=== PATIENT | female | born 1940 | race Caucasian/White ===

== ENCOUNTER 2016-08-10 12:24 | Inpatient (IN) | payer OTHER ==
[2016-08-10] VITALS (11 sets, daily range): BP systolic 73–116; BP diastolic 32–81
[~2016-08-10] VITALS: Ht 162.6 cm; Wt 88.9 kg
[~2016-08-10 12:24] MED LIST: ASPIRIN325 MG PO; ATORVASTATIN CA40 MG PO; CARVEDILOL12.5 MG PO; CARVEDILOL6.25 MG PO; GABAPENTIN100 MG PO; GLIPIZIDE ER2.5 MG PO; HYDREA500 MG PO; HYDROXYUREA500 MG PO; LASIX20 MG PO; LISINOPRIL40 MG PO; NORVASC2.5 MG PO; SYSTANE GEL EYE10 ML BOTH EYES
[2016-08-10 13:21] LABS: INTER. NORMALIZED RATIO 1.6; PROTHROMBIN TIME 16.1 (9.2-11.2); PTT 32.1 (25-32)
[2016-08-10 13:24] LABS: CHLORIDE 101 mEq/L (99-109); POTASSIUM 4.2 mEq/L (3.7-5.4); SODIUM 136 mEq/L (136-147)
[2016-08-10 13:25] LABS: AMYLASE 28 IU/L (1-118)
[2016-08-10 13:26] LABS: GLUCOSE 233 mg/dL (70-99)
[2016-08-10 13:27] LABS: ANION GAP 15 MEQ/L (2-14)
[2016-08-10 13:28] LABS: TOTAL BILIRUBIN 2.8 mg/dL (0.0-1.0)
[2016-08-10 13:29] LABS: SERUM ETHYL ALCOHOL < 10 mg/dL
[2016-08-10 13:30] LABS: ALKALINE PHOSPHATASE 83 IU/L (3-129); GFR ESTIMATE (CALCULATED) 15 mL/min/
[2016-08-10 13:31] LABS: UREA NITROGEN (BUN) 64 mg/dL (9-23)
[2016-08-10 13:33] LABS: LIPASE 21 U/L (1.0-51.0); TROP-I INTERPRETATION POSITIVE
[2016-08-10 13:34] LABS: TROP-I INTERPRETATION POSITIVE
[2016-08-10 13:38] LABS: TROPONIN-I 1.22 ng/mL (0.0-0.30)
[2016-08-10 14:18] LABS: EOSINOPHIL (%) 1.5 % (0-5); EOSINOPHIL COUNT 0.2 K/uL (0-0.3); IMMATURE GRANULOCYTE (%) 0.4 % (0.0-0.7); IMMATURE GRANULOCYTE COUNT 0.6 K/uL; LYMPHOCYTE COUNT 1.2 K/uL (1.0-2.8); MCH 20.1 PG (29.0-34.0); MCHC 28.5 G/DL (30.0-36.0); MCV 70.5 FL (83-99); MEAN PLAT.VOLUME 11.3 uM^3 (9.5-12.4); MONOCYTE (%) 4.1 % (3-12); MONOCYTE COUNT 0.6 K/uL (0-0.8); NEUTROPHIL (%) 85.2 % (45-76); NEUTROPHIL COUNT 12.2 K/uL (1.8-6.4); PLATELET COUNT 636 K/uL (156-360); RBC DIS.WIDTH-CV 24.4 % (11.8-14.6); RBC DIS.WIDTH-SD 55.7 % (39-53); RED BLOOD COUNT 4.68 M/uL (3.80-5.20); WHITE BLOOD COUNT 14.4 K/uL (4.1-10.2)
[2016-08-10 14:51] LABS: HEMATOLOGY COMMENT 1 SMEAR COMPATIBLE; PLAT.SUFFICIENCY INCREASED
[2016-08-10] MEDS ORDERED: GLIPIZIDE XL5 MG PO (15:54)
[2016-08-10] MEDS ORDERED: LISINOPRIL40 MG PO (15:56)
[2016-08-10] MEDS ORDERED: ELIQUIS5 MG PO (16:00)
[2016-08-10] MEDS ORDERED: OMEPRAZOLE40 M1 PO (16:00)
[2016-08-10] MEDS ORDERED: LASIX20 MG PO (16:00)
[2016-08-10 16:32] LABS: METH RESISTANT S AUREUS PCR NEGATIVE (NEGATIVE)
[2016-08-10 16:41] LABS: PROBE CHECK PASS; SPECIMEN PROCESSING CONTROL PASS
[2016-08-10 20:40] LABS: IRON 13 MCG/DL (35-150)
[2016-08-10 20:50] LABS: HEMATOCRIT 29.8 % (36.0-46.0); MCHC 28.2 G/DL (30.0-36.0); MCV 71.1 FL (83-99); PLATELET COUNT 556 K/uL (156-360); RBC DIS.WIDTH-CV 23.5 % (11.8-14.6); RBC DIS.WIDTH-SD 56.4 % (39-53); RED BLOOD COUNT 4.19 M/uL (3.80-5.20); WHITE BLOOD COUNT 12.5 K/uL (4.1-10.2)
[2016-08-10 20:57] LABS: URIC ACID 11.2 mg/dL (3.1-9.2)
[2016-08-10 21:41] LABS: FERRITIN 11 NG/ML (10-291)
[2016-08-11] VITALS (15 sets, daily range): BP systolic 81–114; BP diastolic 37–61
[2016-08-11 01:07] LABS: ADD MIUA? YES; BILIRUBIN SMALL; BLOOD NEGATIVE; COLOR DK YELLOW ((YELLOW)); GLUCOSE (STRIP) NEGATIVE; KETONES NEGATIVE; LEUKOCYTES MODERATE; NITRITE NEGATIVE; PROTEIN (STRIP) 30; SPECIFIC GRAVITY 1.035 (1.000-1.030)
[2016-08-11 01:13] LABS: TROP-I INTERPRETATION POSITIVE
[2016-08-11 01:25] LABS: TROPONIN-I 2.72 ng/mL (0.0-0.30)
[2016-08-11 02:09] LABS: EPITHELIAL CELLS RARE; MUCUS NONE SEEN; RED BLOOD CELLS 0-5 /HPF (0-5); WHITE BLOOD CELLS TNTC /HPF (0-5)
[2016-08-11 02:10] LABS: BACTERIA 2+; CASTS NONE SEEN /LPF; CRYSTALS NONE SEEN
[2016-08-11 05:06] LABS: CHLORIDE 102 mEq/L (99-109); POTASSIUM 4.4 mEq/L (3.7-5.4); SODIUM 136 mEq/L (136-147)
[2016-08-11 05:07] LABS: GLUCOSE 176 mg/dL (70-99)
[2016-08-11 05:09] LABS: ANION GAP 12 MEQ/L (2-14)
[2016-08-11 05:11] LABS: GFR ESTIMATE (CALCULATED) 14 mL/min/
[2016-08-11 05:12] LABS: UREA NITROGEN (BUN) 67 mg/dL (9-23)
[2016-08-11 07:02] LABS: TROP-I INTERPRETATION POSITIVE
[2016-08-11 07:05] LABS: TROPONIN-I 2.51 ng/mL (0.0-0.30)
[2016-08-11 08:00] LABS: POINT-OF-CARE METER ID UU14162636
[2016-08-11 08:40] LABS: AMPHETAMINE NEGATIVE (500 ng/mL); BARBITURATES NEGATIVE (200 ng/mL); BENZODIAZEPINES NEGATIVE (150 ng/mL); COCAINE NEGATIVE (150 ng/mL); INTERNAL CONTROLS VALID? YES; METHADONE NEGATIVE (200 ng/mL); METHAMPHETAMINE NEGATIVE (500 ng/mL); OPIATES (MORPHINE) NEGATIVE (100 ng/mL); OXYCODONE NEGATIVE (100 ng/mL); PHENCYCLIDINE NEGATIVE (25 ng/mL); PROPOXYPHENE NEGATIVE (300 ng/mL); THC CANNABINOIDS NEGATIVE (50 ng/mL); TRICYCLIC ANTIDEPRESSANTS NEGATIVE (300 ng/mL)
[2016-08-11 12:20] LABS: POINT-OF-CARE METER ID UU14162636
[2016-08-11 17:41] LABS: POINT-OF-CARE METER ID UU14162636
[2016-08-12] VITALS (12 sets, daily range): BP systolic 99–118; BP diastolic 24–60
[2016-08-12 05:58] LABS: POINT-OF-CARE METER ID UU14174217
[2016-08-12 06:27] LABS: NRBC (%) 0.5 /100 WBC (0-0)
[2016-08-12 06:55] LABS: ANION GAP 13 MEQ/L (2-14); CHLORIDE 99 MEQ/L (99-109); GFR ESTIMATE (CALCULATED) 11 mL/min/; GLOBULINS 2.7 G/DL (2.3-3.5); GLUCOSE 156 mg/dL (70-99); MAGNESIUM 2.1 mg/dl (1.3-2.7); POTASSIUM 4.8 MEQ/L (3.7-5.4); SAMPLE HEMOLYSIS CHECK 0; SAMPLE ICTERIC CHECK 0; SAMPLE LIPEMIA CHECK 0; SODIUM 135 MEQ/L (136-147); UREA NITROGEN (BUN) 74 mg/dL (9-23); URIC ACID 11.6 mg/dL (3.1-9.2)
[2016-08-12 07:05] LABS: EOSINOPHIL (%) 2.4 % (0-5); EOSINOPHIL COUNT 0.3 K/uL (0-0.3); HEMATOCRIT 30.7 % (36.0-46.0); IMMATURE GRANULOCYTE (%) 0.3 % (0.0-0.7); LYMPHOCYTE COUNT 1.2 K/uL (1.0-2.8); MCH 19.8 PG (29.0-34.0); MCHC 27.7 G/DL (30.0-36.0); MCV 71.4 FL (83-99); MONOCYTE (%) 5.1 % (3-12); MONOCYTE COUNT 0.7 K/uL (0-0.8); NEUTROPHIL (%) 82.6 % (45-76); NEUTROPHIL COUNT 10.7 K/uL (1.8-6.4); RBC DIS.WIDTH-CV 23.6 % (11.8-14.6); RBC DIS.WIDTH-SD 56.6 % (39-53); WHITE BLOOD COUNT 12.9 K/uL (4.1-10.2)
[2016-08-12 07:15] LABS: MEAN PLAT.VOLUME 11.5 uM^3 (9.5-12.4); PLAT.SUFFICIENCY INCREASED; PLATELET COUNT 613 K/uL (156-360); USER ID SDF
[2016-08-12 11:58] LABS: POINT-OF-CARE METER ID UU14174217
[2016-08-12 13:28] LABS: UR CREATININE CONCENTRATION 230.6 MG/DL
[2016-08-12 17:36] LABS: POINT-OF-CARE METER ID UU14174217
[2016-08-12 21:45] LABS: POINT-OF-CARE METER ID UU13113698
[2016-08-13 03:12] LABS: CHLORIDE 101 mEq/L (99-109); POTASSIUM 4.7 mEq/L (3.7-5.4); SODIUM 132 mEq/L (136-147)
[2016-08-13 03:15] LABS: GLUCOSE 153 mg/dL (70-99)
[2016-08-13 03:16] LABS: ANION GAP 14 MEQ/L (2-14)
[2016-08-13 03:18] LABS: ALKALINE PHOSPHATASE 74 IU/L (3-129)
[2016-08-13 03:20] LABS: UREA NITROGEN (BUN) 82 mg/dL (9-23)
[2016-08-13 03:32] LABS: GFR ESTIMATE (CALCULATED) 9 mL/min/; TOTAL BILIRUBIN 1.5 mg/dL (0.0-1.0)
[2016-08-13 04:07] LABS: EOSINOPHIL COUNT 0.3 K/uL (0-0.3); HEMATOCRIT 29.7 % (36.0-46.0); IMMATURE GRANULOCYTE (%) 0.2 % (0.0-0.7); IMMATURE GRANULOCYTE COUNT 0.3 K/uL; LYMPHOCYTE COUNT 1.5 K/uL (1.0-2.8); MCH 19.8 PG (29.0-34.0); MCHC 28.3 G/DL (30.0-36.0); MEAN PLAT.VOLUME 11.6 uM^3 (9.5-12.4); MONOCYTE (%) 5.2 % (3-12); MONOCYTE COUNT 0.7 K/uL (0-0.8); NEUTROPHIL (%) 81.5 % (45-76); PLAT.SUFFICIENCY INCREASED; PLATELET COUNT 653 K/uL (156-360); RBC DIS.WIDTH-SD 54.8 % (39-53); RED BLOOD COUNT 4.24 M/uL (3.80-5.20); USER ID WCD; WHITE BLOOD COUNT 13.6 K/uL (4.1-10.2)
[2016-08-13 04:11] VITALS: BP 116/54
[2016-08-13 08:14] LABS: POINT-OF-CARE METER ID UU14174216; POINT-OF-CARE USER ID NUTSLF44
[2016-08-13 09:44] VITALS: BP 126/60
[2016-08-13 11:35] LABS: POINT-OF-CARE METER ID UU13113698; POINT-OF-CARE USER ID NUTSLF44
[2016-08-13 12:55] VITALS: BP 105/54
[2016-08-13 15:35] VITALS: BP 110/73
[2016-08-13 16:58] LABS: POINT-OF-CARE METER ID UU13113698; POINT-OF-CARE USER ID NUTSLF44
[2016-08-13 20:00] VITALS: BP 118/56
[2016-08-13 21:26] LABS: POINT-OF-CARE METER ID UU13113698
[2016-08-13 23:55] VITALS: BP 130/63
[2016-08-14 04:06] VITALS: BP 133/63
[2016-08-14 07:23] LABS: EOSINOPHIL (%) 2.2 % (0-5); EOSINOPHIL COUNT 0.3 K/uL (0-0.3); HEMATOCRIT 28.7 % (36.0-46.0); IMMATURE GRANULOCYTE (%) 0.2 % (0.0-0.7); LYMPHOCYTE COUNT 1.6 K/uL (1.0-2.8); MCH 20.1 PG (29.0-34.0); MCHC 28.6 G/DL (30.0-36.0); MCV 70.3 FL (83-99); MONOCYTE (%) 4.1 % (3-12); MONOCYTE COUNT 0.5 K/uL (0-0.8); NEUTROPHIL (%) 79.7 % (45-76); NEUTROPHIL COUNT 9.2 K/uL (1.8-6.4); RBC DIS.WIDTH-SD 54.9 % (39-53); RED BLOOD COUNT 4.08 M/uL (3.80-5.20); WHITE BLOOD COUNT 11.6 K/uL (4.1-10.2)
[2016-08-14 07:31] LABS: ANION GAP 9 MEQ/L (2-14); CHLORIDE 98 MEQ/L (99-109); GFR ESTIMATE (CALCULATED) 9 mL/min/; GLUCOSE 145 mg/dL (70-99); POTASSIUM 4.9 MEQ/L (3.7-5.4); SAMPLE HEMOLYSIS CHECK 0; SAMPLE ICTERIC CHECK 0; SAMPLE LIPEMIA CHECK 0; SODIUM 131 MEQ/L (136-147); UREA NITROGEN (BUN) 90 mg/dL (9-23)
[2016-08-14 07:58] LABS: POINT-OF-CARE METER ID UU13113698
[2016-08-14 08:04] LABS: MEAN PLAT.VOLUME 11.4 uM^3 (9.5-12.4); PLAT.SUFFICIENCY INCREASED; PLATELET COUNT 644 K/uL (156-360); USER ID SDF
[2016-08-14 08:30] VITALS: BP 117/57
[2016-08-14 11:34] LABS: POINT-OF-CARE METER ID UU13113698
[2016-08-14 11:57] VITALS: BP 106/55
[2016-08-14 16:25] VITALS: BP 135/57
[2016-08-14 16:26] LABS: POINT-OF-CARE METER ID UU13113698
[2016-08-14 19:08] VITALS: BP 117/56
[2016-08-14 21:00] LABS: POINT-OF-CARE METER ID UU14174216
[2016-08-14 23:42] VITALS: BP 119/58
[2016-08-15 05:19] VITALS: BP 111/58
[2016-08-15 07:19] LABS: EOSINOPHIL COUNT 0.3 K/uL (0-0.3); HEMATOCRIT 29.1 % (36.0-46.0); IMMATURE GRANULOCYTE (%) 0.2 % (0.0-0.7); LYMPHOCYTE COUNT 1.2 K/uL (1.0-2.8); MCH 19.5 PG (29.0-34.0); MCHC 27.8 G/DL (30.0-36.0); MCV 70.1 FL (83-99); MONOCYTE (%) 3.9 % (3-12); MONOCYTE COUNT 0.4 K/uL (0-0.8); NEUTROPHIL (%) 80.8 % (45-76); NEUTROPHIL COUNT 8.3 K/uL (1.8-6.4); RBC DIS.WIDTH-CV 23.2 % (11.8-14.6); RBC DIS.WIDTH-SD 55.4 % (39-53); RED BLOOD COUNT 4.15 M/uL (3.80-5.20); WHITE BLOOD COUNT 10.3 K/uL (4.1-10.2)
[2016-08-15 07:22] LABS: ANION GAP 12 MEQ/L (2-14); CHLORIDE 98 MEQ/L (99-109); GFR ESTIMATE (CALCULATED) 10 mL/min/; GLUCOSE 126 mg/dL (70-99); POTASSIUM 5.1 MEQ/L (3.7-5.4); SAMPLE HEMOLYSIS CHECK 0; SAMPLE ICTERIC CHECK 0; SAMPLE LIPEMIA CHECK 0; SODIUM 132 MEQ/L (136-147); UREA NITROGEN (BUN) 87 mg/dL (9-23)
[2016-08-15 07:37] LABS: ANISOCYTOSIS 1+; BURR CELLS OCC; MACROCYTES RARE; MEAN PLAT.VOLUME 11.4 uM^3 (9.5-12.4); MICROCYTOSIS 1+; OVALOCYTES 1+; PLAT.SUFFICIENCY INCREASED; PLATELET COUNT 679 K/uL (156-360); POLYCHROMASIA 2+; SCHISTOCYTES RARE; TARGET CELLS 1+; USER ID CCL
[2016-08-15 08:11] VITALS: BP 123/60
[2016-08-15 11:40] VITALS: BP 128/56
[2016-08-15 12:06] LABS: ALBUMIN 3.27 G/DL (3.6-4.9); ALBUMIN PERCENT 57.3 %; ALPHA-1 GLOBULIN 0.25 G/DL (0.15-0.40); ALPHA-1 PERCENT 4.4 %; ALPHA-2 GLOBULIN 0.56 G/DL (0.45-0.85); ALPHA-2 PERCENT 9.8 %; BETA PERCENT 10.7 %; GAMMA PERCENT 17.8 %
[2016-08-15 16:04] VITALS: BP 104/55
[2016-08-15 16:14] LABS: POINT-OF-CARE METER ID UU14174216
[2016-08-15 19:45] VITALS: BP 137/63
[2016-08-15 21:50] LABS: POINT-OF-CARE METER ID UU13113698
[2016-08-15 23:33] VITALS: BP 114/61
[2016-08-16 03:00] VITALS: BP 122/58
[2016-08-16 06:30] LABS: NRBC (%) 0.4 /100 WBC (0-0)
[2016-08-16 06:52] LABS: PTT 47.8 (25-32)
[2016-08-16 06:59] LABS: EOSINOPHIL (%) 3.4 % (0-5); EOSINOPHIL COUNT 0.3 K/uL (0-0.3); IMMATURE GRANULOCYTE (%) 0.2 % (0.0-0.7); LYMPHOCYTE COUNT 1.1 K/uL (1.0-2.8); MONOCYTE (%) 4.3 % (3-12); MONOCYTE COUNT 0.4 K/uL (0-0.8); NEUTROPHIL COUNT 7.8 K/uL (1.8-6.4)
[2016-08-16 07:03] LABS: ANION GAP 10 MEQ/L (2-14); CHLORIDE 99 MEQ/L (99-109); GFR ESTIMATE (CALCULATED) 12 mL/min/; GLUCOSE 152 mg/dL (70-99); MAGNESIUM 2.3 mg/dl (1.3-2.7); POTASSIUM 5.5 MEQ/L (3.7-5.4); SAMPLE HEMOLYSIS CHECK 0; SAMPLE ICTERIC CHECK 0; SAMPLE LIPEMIA CHECK 0; SODIUM 133 MEQ/L (136-147); UREA NITROGEN (BUN) 86 mg/dL (9-23)
[2016-08-16 07:17] VITALS: BP 127/76
[2016-08-16 07:45] LABS: POINT-OF-CARE USER ID NUTSLF44
[2016-08-16 08:03] LABS: HEMATOCRIT 27.8 % (36.0-46.0); MCH 19.8 PG (29.0-34.0); MCHC 28.4 G/DL (30.0-36.0); MCV 69.5 FL (83-99); RBC DIS.WIDTH-CV 22.6 % (11.8-14.6); RBC DIS.WIDTH-SD 53.6 % (39-53); WHITE BLOOD COUNT 9.7 K/uL (4.1-10.2)
[2016-08-16 08:15] LABS: MEAN PLAT.VOLUME 10.8 uM^3 (9.5-12.4); PLAT.SUFFICIENCY INCREASED; PLATELET COUNT 674 K/uL (156-360); USER ID CL
[2016-08-16 10:21] LABS: INTER. NORMALIZED RATIO 1.4; PROTHROMBIN TIME 14.5 (9.2-11.2)
[2016-08-16 11:21] LABS: POINT-OF-CARE USER ID NUTSLF44
[2016-08-16 12:32] VITALS: BP 121/59
[2016-08-16 12:56] LABS: POC NON-PRINT COM 1 ND
[2016-08-16 16:59] VITALS: BP 121/65
[2016-08-16 17:02] LABS: POINT-OF-CARE USER ID NUTSLF44
[2016-08-16 20:20] VITALS: BP 132/62
[2016-08-16 21:06] LABS: POINT-OF-CARE METER ID UU14174216
[2016-08-16 23:42] VITALS: BP 123/58
[2016-08-17 04:39] VITALS: BP 132/63
[2016-08-17 05:58] LABS: INTER. NORMALIZED RATIO 1.4; PTT 58.5 (25-32)
[2016-08-17 06:09] LABS: ANION GAP 8 MEQ/L (2-14); CHLORIDE 101 MEQ/L (99-109); GFR ESTIMATE (CALCULATED) 15 mL/min/; GLUCOSE 140 mg/dL (70-99); SAMPLE HEMOLYSIS CHECK 0; SAMPLE ICTERIC CHECK 0; SAMPLE LIPEMIA CHECK 0; SODIUM 135 MEQ/L (136-147); UREA NITROGEN (BUN) 81 mg/dL (9-23)
[2016-08-17 07:17] VITALS: BP 132/59
[2016-08-17 08:00] LABS: POINT-OF-CARE METER ID UU13113698
[2016-08-17 11:32] LABS: HEMATOLOGY COMMENT 1 REV
[2016-08-17 11:44] LABS: HEMATOCRIT 30.1 % (36.0-46.0); MCH 19.8 PG (29.0-34.0); MCHC 27.9 G/DL (30.0-36.0); MCV 70.8 FL (83-99); MEAN PLAT.VOLUME 11.2 uM^3 (9.5-12.4); PLATELET COUNT 742 K/uL (156-360); RBC DIS.WIDTH-CV 22.9 % (11.8-14.6); RED BLOOD COUNT 4.25 M/uL (3.80-5.20); WHITE BLOOD COUNT 9.8 K/uL (4.1-10.2)
[2016-08-17 12:18] VITALS: BP 114/55
[2016-08-17 12:33] LABS: POINT-OF-CARE METER ID UU13113698
[2016-08-17 15:44] VITALS: BP 117/56
[2016-08-17 15:51] LABS: POINT-OF-CARE METER ID UU13113698
[2016-08-17 20:00] VITALS: BP 143/68
[2016-08-18 00:03] VITALS: BP 137/66
[2016-08-18 04:20] VITALS: BP 129/58
[2016-08-18 06:58] LABS: INTER. NORMALIZED RATIO 1.4; PROTHROMBIN TIME 14.2 (9.2-11.2); PTT 63.3 (25-32)
[2016-08-18 07:17] VITALS: BP 121/58
[2016-08-18 07:19] LABS: ANION GAP 8 MEQ/L (2-14); CHLORIDE 102 MEQ/L (99-109); GFR ESTIMATE (CALCULATED) 21 mL/min/; GLUCOSE 152 mg/dL (70-99); POTASSIUM 5.7 MEQ/L (3.7-5.4); SAMPLE HEMOLYSIS CHECK 0; SAMPLE ICTERIC CHECK 0; SAMPLE LIPEMIA CHECK 0; SODIUM 136 MEQ/L (136-147); UREA NITROGEN (BUN) 72 mg/dL (9-23)
[2016-08-18 08:09] LABS: HEMATOLOGY COMMENT 1 SMEAR COMPATIBLE; MCH 19.7 PG (29.0-34.0); MCV 70.3 FL (83-99); MEAN PLAT.VOLUME 10.9 uM^3 (9.5-12.4); PLATELET COUNT 765 K/uL (156-360); RBC DIS.WIDTH-CV 22.9 % (11.8-14.6); RED BLOOD COUNT 4.27 M/uL (3.80-5.20); WHITE BLOOD COUNT 10.3 K/uL (4.1-10.2)
[2016-08-18 11:24] LABS: POINT-OF-CARE METER ID UU13113781
[2016-08-18 11:30] VITALS: BP 128/55
[2016-08-18 15:06] LABS: BASE EXCESS 3.8 mEq/L (-3 to +3); BICARBONATE 28.5 mEq/L (22-26); CARBOXY HGB 2.1 % (0-5); METHEMOGLOBIN 1.7 % (0-1.5); PCO2 43 mm Hg (35-45); pH 7.43 (7.35-7.45)
[2016-08-18 15:08] LABS: DEVICE NC; O2 FLOW 2 L/MIN; PO2 33 mm Hg (80-100); SITE PULMONARY ARTERY
[2016-08-18 15:47] VITALS: BP 126/64
[2016-08-18 16:12] LABS: POINT-OF-CARE METER ID UU13113698
[2016-08-18 19:42] VITALS: BP 118/79
[2016-08-18 21:23] LABS: POINT-OF-CARE METER ID UU13113781
[2016-08-19 01:29] VITALS: BP 142/66
[2016-08-19 06:10] LABS: HEMATOCRIT 28.7 % (36.0-46.0); MCH 19.6 PG (29.0-34.0); MCHC 27.9 G/DL (30.0-36.0); MCV 70.3 FL (83-99); MEAN PLAT.VOLUME 10.8 uM^3 (9.5-12.4); PLATELET COUNT 747 K/uL (156-360); RBC DIS.WIDTH-CV 22.7 % (11.8-14.6); RBC DIS.WIDTH-SD 54.4 % (39-53); RED BLOOD COUNT 4.08 M/uL (3.80-5.20); WHITE BLOOD COUNT 10.2 K/uL (4.1-10.2)
[2016-08-19 06:29] LABS: INTER. NORMALIZED RATIO 1.4; PROTHROMBIN TIME 14.2 (9.2-11.2)
[2016-08-19 06:42] LABS: ANION GAP 8 MEQ/L (2-14); CHLORIDE 102 MEQ/L (99-109); GFR ESTIMATE (CALCULATED) 23 mL/min/; GLUCOSE 130 mg/dL (70-99); POTASSIUM 5.3 MEQ/L (3.7-5.4); SAMPLE HEMOLYSIS CHECK 0; SAMPLE ICTERIC CHECK 0; SAMPLE LIPEMIA CHECK 0; SODIUM 137 MEQ/L (136-147); UREA NITROGEN (BUN) 63 mg/dL (9-23)
[2016-08-19 07:47] LABS: POINT-OF-CARE METER ID UU14174216
[2016-08-19 09:15] VITALS: BP 132/63
[2016-08-19 11:38] LABS: POINT-OF-CARE METER ID UU13113698
[2016-08-19 12:00] VITALS: BP 131/76
[2016-08-19 16:30] VITALS: BP 130/61
[2016-08-19 16:37] LABS: POINT-OF-CARE METER ID UU13113698
[2016-08-19 19:02] VITALS: BP 130/60
[2016-08-20 00:30] VITALS: BP 144/81
[2016-08-20 05:32] VITALS: BP 133/62
[2016-08-20 05:35] LABS: INTER. NORMALIZED RATIO 1.4; PROTHROMBIN TIME 14.5 (9.2-11.2)
[2016-08-20 07:33] VITALS: BP 141/62
[2016-08-20 08:16] LABS: ANION GAP 9 MEQ/L (2-14); CHLORIDE 102 MEQ/L (99-109); GFR ESTIMATE (CALCULATED) 24 mL/min/; GLUCOSE 146 mg/dL (70-99); POTASSIUM 5.2 MEQ/L (3.7-5.4); SAMPLE HEMOLYSIS CHECK 0; SAMPLE ICTERIC CHECK 0; SAMPLE LIPEMIA CHECK 0; SODIUM 137 MEQ/L (136-147); UREA NITROGEN (BUN) 59 mg/dL (9-23)
[2016-08-20 11:20] LABS: POINT-OF-CARE METER ID UU13113698
[2016-08-20 12:11] VITALS: BP 120/76
[2016-08-20] MEDS ORDERED: ATORVASTATIN CA40 MG PO (13:24)
[2016-08-20] MEDS ORDERED: ADVAIR HFA120 INHALA IH (13:24)
[2016-08-20] MEDS ORDERED: LASIX20 MG PO (13:24)
[2016-08-20] MEDS ORDERED: SPIRIVA RESPIMAT4 GM IH (13:24)
[2016-08-20] MEDS ORDERED: ASPIR-LOW81 MG PO (13:24)
== END 2016-08-20 15:37 | disposition home health service (06) | DRG 280 ==
LOC: EME 12:24 → 4WEST 13:48 → 4EAST 13:48 → 2SOUTH 13:48 → 4WEST 14:10 → 4EAST 08-12 20:55
PROVIDERS: Emergency Medicine; Hospitalist; Internal Medicine; Internal Medicine Cardiovascular Disease; Internal Medicine Critical Care Medicine; Internal Medicine Nephrology; Physician Assistant Medical; Student in an Organized Health Care Education/Training Program
DX: I13.0 Hypertensive heart and chronic kidney disease with heart failure and stage 1 through stage 4 chronic kidney disease, or unspecified chronic kidney disease (principal); I50.33 Acute on chronic diastolic (congestive) heart failure; I21.4 Non-ST elevation (NSTEMI) myocardial infarction; N17.0 Acute kidney failure with tubular necrosis; T50.8X5A Adverse effect of diagnostic agents, initial encounter; N39.0 Urinary tract infection, site not specified; E87.1 Hypo-osmolality and hyponatremia; E87.5 Hyperkalemia; E11.22 Type 2 diabetes mellitus with diabetic chronic kidney disease; N18.3 Chronic kidney disease, stage 3 (moderate); E78.5 Hyperlipidemia, unspecified; I48.0 Paroxysmal atrial fibrillation; I25.10 Atherosclerotic heart disease of native coronary artery without angina pectoris; I27.2 Other secondary pulmonary hypertension; I36.1 Nonrheumatic tricuspid (valve) insufficiency; I25.5 Ischemic cardiomyopathy; D45 Polycythemia vera; D50.9 Iron deficiency anemia, unspecified; I27.81 Cor pulmonale (chronic); Z95.1 Presence of aortocoronary bypass graft; Z95.5 Presence of coronary angioplasty implant and graft; I25.2 Old myocardial infarction; Z79.01 Long term (current) use of anticoagulants; Z87.891 Personal history of nicotine dependence; Z79.82 Long term (current) use of aspirin
CPT/HCPCS: 36415; 36600; 71010; 71250; 76770; 78582; 80048; 80048 91; 80053; 80069; 81003; 82150; 82272; 82436; 82570; 82728; 82803; 82948; 83540; 83690; 83735; 83880; 83883 90; 84100; 84133; 84156; 84165; 84300; 84443; 84466; 84484; 84550; 85025; 85027; 85610; 85730; 86850; 86900; 86901; 87641; 89190; 93005; 93306; 93970; 94640; 94640 76; 94799; 97530 GO; 99281; 99284; A9540; A9567; C1760; C1769; C1887; C1894; G0478; G0480; J0461; J0696; J1644; J1815; J1940; J2250; J2405; J3010; J7030; J7050

== ENCOUNTER 2016-09-17 03:45 | Inpatient (IN) | payer OTHER ==
[~2016-09-17] VITALS: Ht 162.6 cm; Wt 84.7 kg
[~2016-09-17 03:45] MED LIST changes: +ADVAIR HFA120 INHALA IH; +ASPIR-LOW81 MG PO; +ELIQUIS5 MG PO; +GLIPIZIDE XL5 MG PO; +OMEPRAZOLE40 M1 PO; +SPIRIVA RESPIMAT4 GM IH
[2016-09-17 04:35] LABS: HEMATOCRIT 28.2 % (36.0-46.0); MCH 18.8 PG (29.0-34.0); MCHC 27.7 G/DL (30.0-36.0); MCV 67.8 FL (83-99); MEAN PLAT.VOLUME 11.2 uM^3 (9.5-12.4); PLATELET COUNT 941 K/uL (156-360); RBC DIS.WIDTH-CV 24.6 % (11.8-14.6); RBC DIS.WIDTH-SD 55.8 % (39-53); RED BLOOD COUNT 4.16 M/uL (3.80-5.20); WHITE BLOOD COUNT 11.3 K/uL (4.1-10.2)
[2016-09-17 04:50] LABS: CHLORIDE 97 mEq/L (99-109); POTASSIUM 4.5 mEq/L (3.7-5.4); SODIUM 138 mEq/L (136-147)
[2016-09-17 04:52] LABS: GLUCOSE 119 mg/dL (70-99)
[2016-09-17 04:53] LABS: ANION GAP 13 MEQ/L (2-14)
[2016-09-17 04:54] LABS: TOTAL BILIRUBIN 2.1 mg/dL (0.0-1.0)
[2016-09-17 04:55] LABS: ALKALINE PHOSPHATASE 121 IU/L (3-129)
[2016-09-17 04:56] LABS: GFR ESTIMATE (CALCULATED) 22 mL/min/
[2016-09-17 04:57] LABS: DIRECT BILIRUBIN 1.2 mg/dL (0.0-0.3); TROP-I INTERPRETATION NEGATIVE; TROPONIN-I 0.03 ng/mL (0.0-0.30); UREA NITROGEN (BUN) 61 mg/dL (9-23)
[2016-09-17 04:59] LABS: LIPASE 47 U/L (1.0-51.0)
[2016-09-17] MEDS ORDERED: BUMETANIDE2 MG PO (05:52)
[2016-09-17 06:29] VITALS: BP 141/73
[2016-09-17 07:30] LABS: POINT-OF-CARE METER ID UU13113698
[2016-09-17 07:51] VITALS: BP 135/63
[2016-09-17 11:05] VITALS: BP 127/60
[2016-09-17 11:42] LABS: POINT-OF-CARE METER ID UU14174216
[2016-09-17 13:33] LABS: ABSOLUTE RETICULOCYTE CT. 0.09 M/uL (0.02-0.08); IMM.RETIC FRACTION 26.4 % (3-19); RETIC HGB EQUIVALENT 20.7 (28-36)
[2016-09-17 13:55] LABS: LACTATE DEHYDROGENASE 184 IU/L (20-246)
[2016-09-17 15:09] LABS: TROP-I INTERPRETATION NEGATIVE; TROPONIN-I 0.02 ng/mL (0.0-0.30)
[2016-09-17 15:16] LABS: FERRITIN 9 NG/ML (10-291)
[2016-09-17 16:04] VITALS: BP 115/60
[2016-09-17 16:25] LABS: POINT-OF-CARE METER ID UU13113698
[2016-09-17 20:30] VITALS: BP 111/52
[2016-09-17 21:26] LABS: IRON 18 MCG/DL (35-150)
[2016-09-18] VITALS (7 sets, daily range): BP systolic 91–141; BP diastolic 50–63
[2016-09-18 06:55] LABS: ALKALINE PHOSPHATASE 100 IU/L (3-129); ANION GAP 11 MEQ/L (2-14); CHLORIDE 95 MEQ/L (99-109); GFR ESTIMATE (CALCULATED) 19 mL/min/; GLUCOSE 127 mg/dL (70-99); HDL CHOLESTEROL 22 MG/DL (Desirable>=50); LDL CHOLESTEROL 28 mg/dL (Desirable<100); MAGNESIUM 2.3 mg/dl (1.3-2.7); NON-HDL CHOLESTEROL 41 mg/dL (Desirable<160); POTASSIUM 4.8 MEQ/L (3.7-5.4); SAMPLE HEMOLYSIS CHECK 0; SAMPLE ICTERIC CHECK 0; SAMPLE LIPEMIA CHECK 0; SODIUM 136 MEQ/L (136-147); TOTAL BILIRUBIN 1.9 MG/DL (0.0-1.0); TOTAL CHOLESTEROL 63 mg/dL (Desirable<200); TRIGLYCERIDES 64 MG/DL (Normal: <150); UREA NITROGEN (BUN) 63 mg/dL (9-23)
[2016-09-18 07:36] LABS: NRBC (%) 0.2 /100 WBC (0-0)
[2016-09-18 07:42] LABS: POINT-OF-CARE METER ID UU14174216
[2016-09-18 07:43] LABS: Estimated Average Glucose 148 mg/dL (70-123); HEMOGLOBIN A1c (GLYCOHEMOGLOB) 6.8 % HGB (Below 5.7)
[2016-09-18 07:54] LABS: BASOPHIL COUNT 0.1 K/uL (0-0.1); EOSINOPHIL (%) 1.4 % (0-5); EOSINOPHIL COUNT 0.2 K/uL (0-0.3); HEMATOCRIT 27.2 % (36.0-46.0); IMMATURE GRANULOCYTE (%) 0.3 % (0.0-0.7); LYMPHOCYTE COUNT 1.4 K/uL (1.0-2.8); MCH 18.7 PG (29.0-34.0); MCHC 27.6 G/DL (30.0-36.0); MCV 67.8 FL (83-99); MONOCYTE (%) 5.4 % (3-12); MONOCYTE COUNT 0.7 K/uL (0-0.8); NEUTROPHIL (%) 81.7 % (45-76); NEUTROPHIL COUNT 10.8 K/uL (1.8-6.4); RBC DIS.WIDTH-CV 23.9 % (11.8-14.6); RBC DIS.WIDTH-SD 55.4 % (39-53); RED BLOOD COUNT 4.01 M/uL (3.80-5.20); WHITE BLOOD COUNT 13.2 K/uL (4.1-10.2)
[2016-09-18 08:25] LABS: HEMATOLOGY COMMENT 1 REV; USER ID NJR
[2016-09-18 08:29] LABS: MEAN PLAT.VOLUME 11.1 uM^3 (9.5-12.4); PLATELET COUNT 895 K/uL (156-360)
[2016-09-18 11:11] LABS: POINT-OF-CARE METER ID UU14174216
[2016-09-18] MEDS ORDERED: LIPITOR40 MG PO (14:20)
[2016-09-19 03:47] VITALS: BP 139/68
[2016-09-19 07:11] LABS: HEMATOCRIT 27.1 % (36.0-46.0); MCH 18.4 PG (29.0-34.0); MCHC 27.3 G/DL (30.0-36.0); MCV 67.4 FL (83-99); MEAN PLAT.VOLUME 10.6 uM^3 (9.5-12.4); PLATELET COUNT 915 K/uL (156-360); RBC DIS.WIDTH-CV 23.3 % (11.8-14.6); RBC DIS.WIDTH-SD 53.4 % (39-53); RED BLOOD COUNT 4.02 M/uL (3.80-5.20); WHITE BLOOD COUNT 15.3 K/uL (4.1-10.2)
[2016-09-19 07:31] LABS: ANION GAP 8 MEQ/L (2-14); CHLORIDE 95 MEQ/L (99-109); GFR ESTIMATE (CALCULATED) 17 mL/min/; GLUCOSE 122 mg/dL (70-99); POTASSIUM 4.3 MEQ/L (3.7-5.4); SAMPLE HEMOLYSIS CHECK 0; SAMPLE ICTERIC CHECK 0; SAMPLE LIPEMIA CHECK 0; SODIUM 135 MEQ/L (136-147); UREA NITROGEN (BUN) 62 mg/dL (9-23)
[2016-09-19 07:34] LABS: EOSINOPHIL (%) 1.7 % (0-5); EOSINOPHIL COUNT 0.3 K/uL (0-0.3); IMMATURE GRANULOCYTE (%) 0.3 % (0.0-0.7); MONOCYTE (%) 5.4 % (3-12); MONOCYTE COUNT 0.8 K/uL (0-0.8); NEUTROPHIL (%) 85.8 % (45-76); NEUTROPHIL COUNT 13.1 K/uL (1.8-6.4)
[2016-09-19 08:00] VITALS: BP 104/49
[2016-09-19 12:00] VITALS: BP 106/52
[2016-09-19 17:56] VITALS: BP 125/64
[2016-09-19 19:30] VITALS: BP 140/60
[2016-09-19 23:20] VITALS: BP 146/62
[2016-09-20 03:58] VITALS: BP 138/76
[2016-09-20 07:35] VITALS: BP 144/72
[2016-09-20 07:52] LABS: ANION GAP 8 MEQ/L (2-14); CHLORIDE 98 MEQ/L (99-109); GFR ESTIMATE (CALCULATED) 19 mL/min/; GLUCOSE 128 mg/dL (70-99); POTASSIUM 4.5 MEQ/L (3.7-5.4); SAMPLE HEMOLYSIS CHECK 0; SAMPLE ICTERIC CHECK 0; SAMPLE LIPEMIA CHECK 0; SODIUM 139 MEQ/L (136-147); UREA NITROGEN (BUN) 60 mg/dL (9-23)
[2016-09-20 08:23] LABS: EOSINOPHIL COUNT 0.3 K/uL (0-0.3); HEMATOCRIT 27.9 % (36.0-46.0); IMMATURE GRANULOCYTE (%) 0.4 % (0.0-0.7); IMMATURE GRANULOCYTE COUNT 0.1 K/uL; LYMPHOCYTE COUNT 1.2 K/uL (1.0-2.8); MCH 18.8 PG (29.0-34.0); MCHC 27.6 G/DL (30.0-36.0); MEAN PLAT.VOLUME 10.4 uM^3 (9.5-12.4); MONOCYTE COUNT 0.7 K/uL (0-0.8); NEUTROPHIL (%) 84.4 % (45-76); NEUTROPHIL COUNT 12.6 K/uL (1.8-6.4); PLAT.SUFFICIENCY INCREASED; PLATELET COUNT 966 K/uL (156-360); RBC DIS.WIDTH-CV 23.8 % (11.8-14.6); RBC DIS.WIDTH-SD 54.2 % (39-53); USER ID CL; WHITE BLOOD COUNT 14.9 K/uL (4.1-10.2)
[2016-09-20 10:40] VITALS: BP 141/65
[2016-09-20 15:40] VITALS: BP 120/55
[2016-09-20 19:00] VITALS: BP 117/58
[2016-09-20 23:25] VITALS: BP 135/61
[2016-09-21 04:20] VITALS: BP 148/68
[2016-09-21 06:36] LABS: HEMATOCRIT 28.2 % (36.0-46.0); MCHC 27.3 G/DL (30.0-36.0); MCV 69.5 FL (83-99); MEAN PLAT.VOLUME 10.6 uM^3 (9.5-12.4); PLATELET COUNT 860 K/uL (156-360); RBC DIS.WIDTH-CV 24.4 % (11.8-14.6); RBC DIS.WIDTH-SD 56.5 % (39-53); RED BLOOD COUNT 4.06 M/uL (3.80-5.20); WHITE BLOOD COUNT 13.7 K/uL (4.1-10.2)
[2016-09-21 06:52] LABS: EOSINOPHIL (%) 2.4 % (0-5); EOSINOPHIL COUNT 0.3 K/uL (0-0.3); IMMATURE GRANULOCYTE (%) 0.2 % (0.0-0.7); LYMPHOCYTE COUNT 1.3 K/uL (1.0-2.8); MONOCYTE (%) 4.2 % (3-12); MONOCYTE COUNT 0.6 K/uL (0-0.8); NEUTROPHIL (%) 83.3 % (45-76); NEUTROPHIL COUNT 11.4 K/uL (1.8-6.4)
[2016-09-21 07:07] LABS: ANION GAP 9 MEQ/L (2-14); CHLORIDE 100 MEQ/L (99-109); GFR ESTIMATE (CALCULATED) 23 mL/min/; GLUCOSE 134 mg/dL (70-99); POTASSIUM 3.7 MEQ/L (3.7-5.4); SAMPLE HEMOLYSIS CHECK 0; SAMPLE ICTERIC CHECK 0; SAMPLE LIPEMIA CHECK 0; SODIUM 139 MEQ/L (136-147); UREA NITROGEN (BUN) 54 mg/dL (9-23)
[2016-09-21 07:15] VITALS: BP 158/72
[2016-09-21 12:28] VITALS: BP 127/57
[2016-09-21] MEDS ORDERED: SPIRONOLACTONE25 MG PO (15:22)
[2016-09-21] MEDS ORDERED: BUMETANIDE1 MG PO (15:23)
[2016-09-21] MEDS ORDERED: ANTIVERT25 MG PO (15:24)
[2016-09-21] MEDS ORDERED: VITAMIN B122500 MCG PO (15:28)
== END 2016-09-21 16:10 | disposition home or self-care (01) | DRG 683 ==
LOC: EME → EDBD 03:45 → EME 03:45 → EDOF 05:24 → 2EASTP 05:24 → 4EAST 06:16 → 2EASTP 09-18 20:15
PROVIDERS: Emergency Medicine; Internal Medicine; Internal Medicine Nephrology; Physician Assistant Medical
DX: N17.9 Acute kidney failure, unspecified (principal); I50.32 Chronic diastolic (congestive) heart failure; J90 Pleural effusion, not elsewhere classified; J98.11 Atelectasis; I27.81 Cor pulmonale (chronic); N18.3 Chronic kidney disease, stage 3 (moderate); E86.0 Dehydration; I48.2 Chronic atrial fibrillation; R42 Dizziness and giddiness; D75.1 Secondary polycythemia; I12.9 Hypertensive chronic kidney disease with stage 1 through stage 4 chronic kidney disease, or unspecified chronic kidney disease; I25.2 Old myocardial infarction; D64.9 Anemia, unspecified; E87.70 Fluid overload, unspecified; I25.10 Atherosclerotic heart disease of native coronary artery without angina pectoris; E11.22 Type 2 diabetes mellitus with diabetic chronic kidney disease; Z51.5 Encounter for palliative care; D72.829 Elevated white blood cell count, unspecified; E53.8 Deficiency of other specified B group vitamins; Z87.891 Personal history of nicotine dependence
CPT/HCPCS: 70450; 70551; 71020; 76770; 80048; 80053; 80061; 80076; 81003; 82272; 82607; 82728; 82746; 82948; 83036; 83540; 83615; 83690; 83735; 83880; 84466; 84484; 85025; 85027; 85045; 87086; 93005; 93880; 94640; 94640 76; 97530 GO; 99281; 99284; J0696; J1756; J1815; J2405; J2765; J3420; J7050

== ENCOUNTER 2016-11-24 18:18 | Inpatient (IN) | payer OTHER ==
[2016-11-24] VITALS (9 sets, daily range): BP systolic 105–118; BP diastolic 32–60
[~2016-11-24] VITALS: Ht 162.6 cm; Wt 82.1 kg
[~2016-11-24 18:18] MED LIST changes: +ANTIVERT25 MG PO; +BUMETANIDE1 MG PO; +BUMETANIDE2 MG PO; +LIPITOR40 MG PO; +SPIRONOLACTONE25 MG PO; +VITAMIN B122500 MCG PO
[2016-11-24 19:11] LABS: HEMATOCRIT 15.7 % (36.0-46.0); MCH 18.5 PG (29.0-34.0); MCHC 28.7 G/DL (30.0-36.0); MCV 64.6 FL (83-99); MEAN PLAT.VOLUME 11.3 uM^3 (9.5-12.4); NRBC (%) 0.2 /100 WBC (0-0); PLATELET COUNT 985 K/uL (156-360); RBC DIS.WIDTH-SD 52.3 % (39-53); RED BLOOD COUNT 2.43 M/uL (3.80-5.20); WHITE BLOOD COUNT 24.3 K/uL (4.1-10.2)
[2016-11-24 19:13] LABS: CHLORIDE 96 mEq/L (99-109); SODIUM 130 mEq/L (136-147)
[2016-11-24 19:15] LABS: GLUCOSE 340 mg/dL (70-99)
[2016-11-24 19:16] LABS: ANION GAP 14 MEQ/L (2-14)
[2016-11-24 19:19] LABS: GFR ESTIMATE (CALCULATED) 13 mL/min/
[2016-11-24 19:30] LABS: UREA NITROGEN (BUN) 155 mg/dL (9-23)
[2016-11-24 19:50] LABS: ABS NEUTROPHIL COUNT 23.4; ACANTHOCYTES 1+; ANISOCYTOSIS 3+; BAND NEUTROPHILS 2.2 % (0-8.0); BASOPHILS 0.4 %; EOSINOPHIL ABS CT 0; HYPOCHROMASIA 3+; INSTRUMENT ABS NEUTROPHIL CT 22.3 K/uL; LYMPHOCYTES 2.7 % (15.0-45.0); MICROCYTOSIS 2+; OVALOCYTES 1+; PLAT.SUFFICIENCY INCREASED; POIKILOCYTOSIS 3+; POLYCHROMASIA 1+; SCHISTOCYTES 2+; SEG.NEUTROPHILS 94.3 % (46.0-76.0); SMUDGE CELLS 2.6
[2016-11-24] MEDS ORDERED: ALDACTONE50 MG PO (20:07)
[2016-11-24] MEDS ORDERED: BUMEX1 MG PO ×2 (20:08)
[2016-11-24] MEDS ORDERED: LO-DOSE ASPIRIN81 M2 PO (20:08)
[2016-11-24] MEDS ORDERED: FERROUS SULFAT325 MG PO (20:09)
[2016-11-24] MEDS ORDERED: ARTIFICIAL TEAR15 M6 BOTH EYES (20:11)
[2016-11-24] MEDS ORDERED: CEPHALEXIN500 MG PO (20:11)
[2016-11-24 23:31] LABS: METH RESISTANT S AUREUS PCR NEGATIVE (NEGATIVE)
[2016-11-24 23:38] LABS: PROBE CHECK PASS; SPECIMEN PROCESSING CONTROL PASS
[2016-11-24 23:52] LABS: POINT-OF-CARE METER ID UU14162636
[2016-11-25] VITALS (40 sets, daily range): BP systolic 11–119; BP diastolic 34–74
[2016-11-25 04:40] LABS: CHLORIDE 98 mEq/L (99-109); POTASSIUM 4.6 mEq/L (3.7-5.4); SODIUM 132 mEq/L (136-147)
[2016-11-25 04:41] LABS: GLUCOSE 307 mg/dL (70-99)
[2016-11-25 04:43] LABS: ANION GAP 14 MEQ/L (2-14)
[2016-11-25 04:45] LABS: GFR ESTIMATE (CALCULATED) 13 mL/min/
[2016-11-25 04:47] LABS: UREA NITROGEN (BUN) 153 mg/dL (9-23)
[2016-11-25 06:26] LABS: HEMATOCRIT 23.6 % (36.0-46.0); MCH 21.5 PG (29.0-34.0); MCHC 30.1 G/DL (30.0-36.0); MEAN PLAT.VOLUME 11.4 uM^3 (9.5-12.4); NRBC (%) 0.3 /100 WBC (0-0); PLATELET COUNT 920 K/uL (156-360); RBC DIS.WIDTH-CV 26.6 % (11.8-14.6); RBC DIS.WIDTH-SD 66.1 % (39-53); WHITE BLOOD COUNT 24.2 K/uL (4.1-10.2)
[2016-11-25 06:32] LABS: MCV 71.5 FL (83-99)
[2016-11-25 07:27] LABS: ABS NEUTROPHIL COUNT 22.8; ANISOCYTOSIS 3+; ATYPICAL LYMPHOCYTE 0.4 %; BAND NEUTROPHILS 1.8 % (0-8.0); BASOPHILS 0.9 %; EOSINOPHIL ABS CT 0.1; EOSINOPHILS 0.4 % (0-5.0); HYPOCHROMASIA 2+; INSTRUMENT ABS NEUTROPHIL CT 22.1 K/uL; LYMPHOCYTES 2.6 % (15.0-45.0); METAMYELOCYTES 0.4 %; MICROCYTOSIS 2+; NUCLEATED RBC'S 0.4; PLAT.SUFFICIENCY INCREASED; POIKILOCYTOSIS 1+; POLYCHROMASIA 2+; SEG.NEUTROPHILS 92.6 % (46.0-76.0); SPHEROCYTES 2+; TOXIC GRANULATION 1+
[2016-11-25 10:11] LABS: INTER. NORMALIZED RATIO 1.7; PROTHROMBIN TIME 17.4 (9.2-11.2); PTT 30.9 (25-32)
[2016-11-25 12:28] LABS: POINT-OF-CARE METER ID UU13113731
[2016-11-25 13:00] LABS: MCV 74.9 FL (83-99)
[2016-11-25 15:27] LABS: ANION GAP 11 MEQ/L (2-14); CHLORIDE 96 MEQ/L (99-109); POTASSIUM 3.9 MEQ/L (3.7-5.4); SAMPLE HEMOLYSIS CHECK 0; SAMPLE ICTERIC CHECK 1; SAMPLE LIPEMIA CHECK 0; SODIUM 129 MEQ/L (136-147)
[2016-11-25 15:33] LABS: GLUCOSE 245 mg/dL (70-99)
[2016-11-25 15:42] LABS: GFR ESTIMATE (CALCULATED) 13 mL/min/
[2016-11-25 15:44] LABS: UREA NITROGEN (BUN) 139 mg/dL (9-23)
[2016-11-25 17:45] LABS: POINT-OF-CARE METER ID UU14162636
[2016-11-25 18:17] LABS: HEMATOCRIT 29.3 % (36.0-46.0)
[2016-11-25 21:50] LABS: POINT-OF-CARE METER ID UU13113731
[2016-11-26] VITALS (8 sets, daily range): BP systolic 99–122; BP diastolic 38–62
[2016-11-26 00:42] LABS: HEMATOCRIT 27.7 % (36.0-46.0); MCV 73.5 FL (83-99)
[2016-11-26 05:34] LABS: HEMATOCRIT 27.4 % (36.0-46.0); MCHC 30.7 G/DL (30.0-36.0); MCV 75.1 FL (83-99); MEAN PLAT.VOLUME 11.1 uM^3 (9.5-12.4); NRBC (%) 0.1 /100 WBC (0-0); PLATELET COUNT 830 K/uL (156-360); RBC DIS.WIDTH-CV 25.6 % (11.8-14.6); RBC DIS.WIDTH-SD 66.5 % (39-53); RED BLOOD COUNT 3.65 M/uL (3.80-5.20); WHITE BLOOD COUNT 25.9 K/uL (4.1-10.2)
[2016-11-26 06:16] LABS: ANION GAP 12 MEQ/L (2-14); CHLORIDE 96 MEQ/L (99-109); GFR ESTIMATE (CALCULATED) 13 mL/min/; GLUCOSE 224 mg/dL (70-99); IRON 11 MCG/DL (35-150); POTASSIUM 4.4 MEQ/L (3.7-5.4); SAMPLE HEMOLYSIS CHECK 0; SAMPLE ICTERIC CHECK 0; SAMPLE LIPEMIA CHECK 0; SODIUM 131 MEQ/L (136-147)
[2016-11-26 06:19] LABS: UREA NITROGEN (BUN) 142 mg/dL (9-23)
[2016-11-26 08:12] LABS: ABS NEUTROPHIL COUNT 24.9; ANISOCYTOSIS 1+; ATYPICAL LYMPHOCYTE 0.4 %; BAND NEUTROPHILS 1.8 % (0-8.0); BASOPHILS 1.3 %; BURR CELLS 1+; EOSINOPHIL ABS CT 0.2; EOSINOPHILS 0.9 % (0-5.0); INSTRUMENT ABS NEUTROPHIL CT 23.7 K/uL; LYMPHOCYTES 0.5 % (15.0-45.0); OVALOCYTES 1+; PLAT.SUFFICIENCY INCREASED; POIKILOCYTOSIS 1+; POLYCHROMASIA 2+; SCHISTOCYTES 1+; SEG.NEUTROPHILS 94.2 % (46.0-76.0); SMUDGE CELLS 0.9
[2016-11-26 12:47] LABS: POINT-OF-CARE METER ID UU14162636
[2016-11-26 14:41] LABS: HEMATOCRIT 28.7 % (36.0-46.0); MCV 75.1 FL (83-99)
[2016-11-26 18:33] LABS: POINT-OF-CARE METER ID UU14174217
[2016-11-26 21:37] LABS: HEMATOCRIT 31.4 % (36.0-46.0); MCV 74.9 FL (83-99)
[2016-11-26 22:03] LABS: POINT-OF-CARE METER ID UU14174217; POINT-OF-CARE USER ID RADDRS44
[2016-11-27] VITALS (11 sets, daily range): BP systolic 104–122; BP diastolic 52–69
[2016-11-27 05:37] LABS: POINT-OF-CARE USER ID RADDRS44
[2016-11-27 05:44] LABS: HEMATOCRIT 29.5 % (36.0-46.0); MCH 23.1 PG (29.0-34.0); MCHC 30.5 G/DL (30.0-36.0); MCV 75.6 FL (83-99); MEAN PLAT.VOLUME 10.7 uM^3 (9.5-12.4); NRBC (%) 0.1 /100 WBC (0-0); PLATELET COUNT 788 K/uL (156-360); RBC DIS.WIDTH-CV 25.9 % (11.8-14.6); RBC DIS.WIDTH-SD 68.8 % (39-53); WHITE BLOOD COUNT 21.2 K/uL (4.1-10.2)
[2016-11-27 06:24] LABS: INTER. NORMALIZED RATIO 1.5; PROTHROMBIN TIME 15.7 (9.2-11.2)
[2016-11-27 07:21] LABS: ALKALINE PHOSPHATASE 87 IU/L (3-129); ANION GAP 11 MEQ/L (2-14); CHLORIDE 102 MEQ/L (99-109); GFR ESTIMATE (CALCULATED) 15 mL/min/; GLUCOSE 149 mg/dL (70-99); POTASSIUM 4.1 MEQ/L (3.7-5.4); SAMPLE HEMOLYSIS CHECK 0; SAMPLE ICTERIC CHECK 0; SAMPLE LIPEMIA CHECK 0; SODIUM 137 MEQ/L (136-147); TOTAL BILIRUBIN 2.5 MG/DL (0.0-1.0)
[2016-11-27 07:32] LABS: ABS NEUTROPHIL COUNT 20.1; ANISOCYTOSIS 1+; BAND NEUTROPHILS 1.8 % (0-8.0); BURR CELLS 1+; EOSINOPHIL ABS CT 0.2; EOSINOPHILS 0.9 % (0-5.0); GIANT PLATELETS 2+; HELMET CELLS 1+; HYPOCHROMASIA 2+; INSTRUMENT ABS NEUTROPHIL CT 19.5 K/uL; LYMPHOCYTES 3.5 % (15.0-45.0); METAMYELOCYTES 0.4 %; NUCLEATED RBC'S 0.4; PLAT.SUFFICIENCY INCREASED; POIKILOCYTOSIS 3+; TARGET CELLS 1+; TEAR DROP CELLS 1+
[2016-11-27 07:34] LABS: UREA NITROGEN (BUN) 125 mg/dL (9-23)
[2016-11-27 17:31] LABS: POINT-OF-CARE METER ID UU14162636
[2016-11-28] VITALS (9 sets, daily range): BP systolic 103–136; BP diastolic 50–68
[2016-11-28 05:51] LABS: EOSINOPHIL (%) 2.1 % (0-5); EOSINOPHIL COUNT 0.4 K/uL (0-0.3); HEMATOCRIT 31.3 % (36.0-46.0); IMMATURE GRANULOCYTE (%) 0.6 % (0.0-0.7); IMMATURE GRANULOCYTE COUNT 0.1 K/uL; INSTRUMENT ABS NEUTROPHIL CT 16.6 K/uL; LYMPHOCYTE COUNT 0.6 K/uL (1.0-2.8); MCHC 29.7 G/DL (30.0-36.0); MCV 77.3 FL (83-99); MEAN PLAT.VOLUME 10.4 uM^3 (9.5-12.4); MONOCYTE (%) 2.8 % (3-12); MONOCYTE COUNT 0.5 K/uL (0-0.8); NEUTROPHIL (%) 90.8 % (45-76); NEUTROPHIL COUNT 16.6 K/uL (1.8-6.4); NRBC (%) 0.2 /100 WBC (0-0); PLATELET COUNT 731 K/uL (156-360); RBC DIS.WIDTH-CV 26.3 % (11.8-14.6); RBC DIS.WIDTH-SD 71.6 % (39-53); RED BLOOD COUNT 4.05 M/uL (3.80-5.20); WHITE BLOOD COUNT 18.3 K/uL (4.1-10.2)
[2016-11-28 06:18] LABS: ANION GAP 11 MEQ/L (2-14); CHLORIDE 104 MEQ/L (99-109); GFR ESTIMATE (CALCULATED) 17 mL/min/; GLUCOSE 158 mg/dL (70-99); POTASSIUM 4.1 MEQ/L (3.7-5.4); SAMPLE HEMOLYSIS CHECK 0; SAMPLE ICTERIC CHECK 0; SAMPLE LIPEMIA CHECK 0; SODIUM 139 MEQ/L (136-147)
[2016-11-28 06:19] LABS: UREA NITROGEN (BUN) 111 mg/dL (9-23)
[2016-11-28 08:38] LABS: POINT-OF-CARE METER ID UU13113803
[2016-11-28 12:01] LABS: POINT-OF-CARE METER ID UU13113731
[2016-11-28 17:44] LABS: POINT-OF-CARE METER ID UU13113803
[2016-11-29] VITALS (7 sets, daily range): BP systolic 101–125; BP diastolic 41–59
[2016-11-29 05:48] LABS: EOSINOPHIL (%) 2.1 % (0-5); EOSINOPHIL COUNT 0.4 K/uL (0-0.3); HEMATOCRIT 30.2 % (36.0-46.0); IMMATURE GRANULOCYTE (%) 0.5 % (0.0-0.7); IMMATURE GRANULOCYTE COUNT 0.1 K/uL; LYMPHOCYTE COUNT 0.6 K/uL (1.0-2.8); MCHC 29.5 G/DL (30.0-36.0); MEAN PLAT.VOLUME 10.7 uM^3 (9.5-12.4); MONOCYTE (%) 3.2 % (3-12); MONOCYTE COUNT 0.5 K/uL (0-0.8); NEUTROPHIL (%) 90.2 % (45-76); NRBC (%) 0.1 /100 WBC (0-0); PLATELET COUNT 613 K/uL (156-360); RBC DIS.WIDTH-CV 26.9 % (11.8-14.6); RBC DIS.WIDTH-SD 74.5 % (39-53); RED BLOOD COUNT 3.87 M/uL (3.80-5.20); WHITE BLOOD COUNT 16.7 K/uL (4.1-10.2)
[2016-11-29 06:42] LABS: ANION GAP 11 MEQ/L (2-14); CHLORIDE 105 MEQ/L (99-109); GFR ESTIMATE (CALCULATED) 17 mL/min/; GLUCOSE 168 mg/dL (70-99); SAMPLE HEMOLYSIS CHECK 0; SAMPLE ICTERIC CHECK 0; SAMPLE LIPEMIA CHECK 0; SODIUM 139 MEQ/L (136-147)
[2016-11-29 06:53] LABS: UREA NITROGEN (BUN) 104 mg/dL (9-23)
[2016-11-29 12:56] LABS: POINT-OF-CARE METER ID UU13113731
[2016-11-30] VITALS: BP 124/58
[2016-11-30 04:00] VITALS: BP 118/64
[2016-11-30 05:33] LABS: POINT-OF-CARE METER ID UU13113731
[2016-11-30 05:52] LABS: HEMATOCRIT 32.3 % (36.0-46.0); MCH 23.1 PG (29.0-34.0); MCHC 29.4 G/DL (30.0-36.0); MCV 78.6 FL (83-99); MEAN PLAT.VOLUME 10.8 uM^3 (9.5-12.4); PLATELET COUNT 639 K/uL (156-360); RBC DIS.WIDTH-CV 26.7 % (11.8-14.6); RBC DIS.WIDTH-SD 74.3 % (39-53); RED BLOOD COUNT 4.11 M/uL (3.80-5.20); WHITE BLOOD COUNT 16.7 K/uL (4.1-10.2)
[2016-11-30 06:00] VITALS: BP 125/63
[2016-11-30 06:15] LABS: ANION GAP 10 MEQ/L (2-14); CHLORIDE 105 MEQ/L (99-109); GFR ESTIMATE (CALCULATED) 19 mL/min/; GLUCOSE 142 mg/dL (70-99); POTASSIUM 4.2 MEQ/L (3.7-5.4); SAMPLE HEMOLYSIS CHECK 0; SAMPLE ICTERIC CHECK 0; SAMPLE LIPEMIA CHECK 0; SODIUM 138 MEQ/L (136-147); UREA NITROGEN (BUN) 96 mg/dL (9-23)
[2016-11-30 08:00] VITALS: BP 119/58
[2016-11-30 12:00] VITALS: BP 110/50
[2016-11-30] MEDS ORDERED: PROTONIX40 MG PO (12:22)
[2016-11-30] MEDS ORDERED: KEFLEX500 MG PO (12:22)
== END 2016-11-30 15:44 | disposition home or self-care (01) | DRG 377 ==
LOC: EME → EDBD 18:18 → EME 18:18 → EDOF 19:38 → 4WEST 19:38
PROVIDERS: Emergency Medicine; Hospitalist; Internal Medicine; Internal Medicine Critical Care Medicine; Internal Medicine Gastroenterology; Internal Medicine Nephrology; Student in an Organized Health Care Education/Training Program; Surgery Surgical Critical Care
PROC: 0DJ08ZZ Inspection of Upper Intestinal Tract, Via Natural or Artificial Opening Endoscopic (ICD-10-PCS; principal; 2016-11-25)
PROC: 30233K1 Transfusion of Nonautologous Frozen Plasma into Peripheral Vein, Percutaneous Approach (ICD-10-PCS; principal; 2016-11-25)
PROC: 30233N1 Transfusion of Nonautologous Red Blood Cells into Peripheral Vein, Percutaneous Approach (ICD-10-PCS; principal; 2016-11-25)
PROC: 0DJD8ZZ Inspection of Lower Intestinal Tract, Via Natural or Artificial Opening Endoscopic (ICD-10-PCS; 2016-11-27)
DX: K92.2 Gastrointestinal hemorrhage, unspecified (principal); D62 Acute posthemorrhagic anemia; N17.9 Acute kidney failure, unspecified; I50.33 Acute on chronic diastolic (congestive) heart failure; E11.22 Type 2 diabetes mellitus with diabetic chronic kidney disease; L03.115 Cellulitis of right lower limb; E87.1 Hypo-osmolality and hyponatremia; E11.65 Type 2 diabetes mellitus with hyperglycemia; D50.0 Iron deficiency anemia secondary to blood loss (chronic); I25.10 Atherosclerotic heart disease of native coronary artery without angina pectoris; I48.2 Chronic atrial fibrillation; D45 Polycythemia vera; Z95.1 Presence of aortocoronary bypass graft; K57.90 Diverticulosis of intestine, part unspecified, without perforation or abscess without bleeding; I13.0 Hypertensive heart and chronic kidney disease with heart failure and stage 1 through stage 4 chronic kidney disease, or unspecified chronic kidney disease; N18.3 Chronic kidney disease, stage 3 (moderate); I25.2 Old myocardial infarction; Z86.73 Personal history of transient ischemic attack (TIA), and cerebral infarction without residual deficits; E78.5 Hyperlipidemia, unspecified; I27.81 Cor pulmonale (chronic); I27.2 Other secondary pulmonary hypertension; K21.9 Gastro-esophageal reflux disease without esophagitis; J84.10 Pulmonary fibrosis, unspecified; I87.2 Venous insufficiency (chronic) (peripheral); Z87.891 Personal history of nicotine dependence; I25.5 Ischemic cardiomyopathy; E87.5 Hyperkalemia; B02.9 Zoster without complications
CPT/HCPCS: 71010; 80048; 80048 91; 80053; 80069; 82948; 83540; 84100; 84466; 85014; 85018; 85025; 85025 91; 85027; 85610; 85730; 86850; 86900; 86901; 86920; 87641; 99281; 99285; A6212; C9113; J0295; J0690; J1756; J1815; J1940; J2405; J7030; J7050; P9016; P9017

== ENCOUNTER 2017-06-25 04:54 | Inpatient (IN) | payer OTHER ==
[~2017-06-25] VITALS: Ht 162.6 cm; Wt 79.6 kg
[~2017-06-25 04:54] MED LIST changes: +ALDACTONE50 MG PO; +ARTIFICIAL TEAR15 M6 BOTH EYES; +BUMEX1 MG PO; +CEPHALEXIN500 MG PO; +FERROUS SULFAT325 MG PO; +KEFLEX500 MG PO; +LO-DOSE ASPIRIN81 M2 PO; +PROTONIX40 MG PO
[2017-06-25 05:53] LABS: HEMATOCRIT 44.6 % (36.0-46.0); MCH 22.9 PG (29.0-34.0); MCHC 30.7 G/DL (30.0-36.0); MCV 74.6 FL (83-99); MEAN PLAT.VOLUME 11.7 uM^3 (9.5-12.4); PLATELET COUNT 467 K/uL (156-360); RBC DIS.WIDTH-CV 21.5 % (11.8-14.6); RBC DIS.WIDTH-SD 52.8 % (39-53); RED BLOOD COUNT 5.98 M/uL (3.80-5.20); WHITE BLOOD COUNT 23.3 K/uL (4.1-10.2)
[2017-06-25 05:56] LABS: PTT 42.3 SEC (25-37)
[2017-06-25 06:00] LABS: CHLORIDE 103 mEq/L (99-109); POTASSIUM 4.6 mEq/L (3.7-5.4); SODIUM 133 mEq/L (136-147)
[2017-06-25 06:01] LABS: INTER. NORMALIZED RATIO 2.1; PROTHROMBIN TIME 23.8 SEC (10.2-12.9)
[2017-06-25 06:02] LABS: GLUCOSE 188 mg/dL (70-99)
[2017-06-25 06:03] LABS: ANION GAP 13 MEQ/L (2-14)
[2017-06-25 06:04] LABS: TOTAL BILIRUBIN 3.3 mg/dL (0.0-1.0)
[2017-06-25 06:05] LABS: ALKALINE PHOSPHATASE 122 IU/L (3-129)
[2017-06-25 06:06] LABS: GFR ESTIMATE (CALCULATED) 11 mL/min/
[2017-06-25 06:09] LABS: LIPASE 45 U/L (1.0-51.0); TROP-I INTERPRETATION POSITIVE
[2017-06-25 06:11] LABS: UREA NITROGEN (BUN) 130 mg/dL (9-23)
[2017-06-25 06:12] LABS: TROPONIN-I 1.35 ng/mL (0.0-0.30)
[2017-06-25 06:18] LABS: BASE EXCESS -11.2 mEq/L (-3 to +3); BICARBONATE 16.4 mEq/L (22-26); CARBOXY HGB 1.8 % (0-5); COMMENTS - BLOOD GASES A+C+; O2 FLOW 1 L/MIN; PCO2 42 mm Hg (35-45); PO2 92 mm Hg (80-100); SITE LR
[2017-06-25 06:19] LABS: DEVICE NC; TOTAL RESP RATE 22 resp/min
[2017-06-25 08:07] LABS: SALICYLATE < 3.0 MG/DL (15-30)
[2017-06-25] MEDS ORDERED: WARFARIN SODIUM2 MG PO (08:32)
[2017-06-25] MEDS ORDERED: WARFARIN SODIUM1 MG PO (08:32)
[2017-06-25] MEDS ORDERED: BUMETANIDE1 MG PO (08:33)
[2017-06-25] MEDS ORDERED: [UNRECOGNIZED DRUG - OTHER] TP (08:35)
[2017-06-25] MEDS ORDERED: VASHE WOUND S1000 ML IR (08:37)
[2017-06-25 11:30] VITALS: BP 108/66
[2017-06-25 12:38] VITALS: BP 108/66
[2017-06-25 12:51] LABS: POINT-OF-CARE METER ID UU14314088; POINT-OF-CARE USER ID ENVKC36
[2017-06-25 13:13] LABS: TROP-I INTERPRETATION POSITIVE; TROPONIN-I 1.83 ng/mL (0.0-0.30)
[2017-06-25 16:35] VITALS: BP 115/62
[2017-06-25 17:00] LABS: POINT-OF-CARE METER ID UU13113781; POINT-OF-CARE USER ID ENVKC36
[2017-06-25 18:49] LABS: TROP-I INTERPRETATION POSITIVE; TROPONIN-I 2.18 ng/mL (0.0-0.30)
[2017-06-25 19:15] VITALS: BP 111/60
[2017-06-25 21:30] LABS: POINT-OF-CARE METER ID UU13113698
[2017-06-25 23:08] VITALS: BP 103/56
[2017-06-26 03:45] VITALS: BP 92/55
[2017-06-26 04:45] LABS: HEMATOCRIT 40.7 % (36.0-46.0); MCH 23.4 PG (29.0-34.0); MCHC 31.2 G/DL (30.0-36.0); MCV 75.1 FL (83-99); MEAN PLAT.VOLUME 12.1 uM^3 (9.5-12.4); PLATELET COUNT 470 K/uL (156-360); RBC DIS.WIDTH-CV 21.1 % (11.8-14.6); RED BLOOD COUNT 5.42 M/uL (3.80-5.20); WHITE BLOOD COUNT 23.7 K/uL (4.1-10.2)
[2017-06-26 04:52] LABS: INTER. NORMALIZED RATIO 2.7; PROTHROMBIN TIME 30.8 SEC (10.2-12.9)
[2017-06-26 05:01] LABS: CHLORIDE 106 mEq/L (99-109); POTASSIUM 5.1 mEq/L (3.7-5.4); SODIUM 136 mEq/L (136-147)
[2017-06-26 05:02] LABS: BASOPHIL COUNT 0.1 K/uL (0-0.1); EOSINOPHIL (%) 0.8 % (0-5); EOSINOPHIL COUNT 0.2 K/uL (0-0.3); IMMATURE GRANULOCYTE (%) 0.5 % (0.0-0.7); IMMATURE GRANULOCYTE COUNT 0.1 K/uL; INSTRUMENT ABS NEUTROPHIL CT 21.7 K/uL; LYMPHOCYTE COUNT 0.7 K/uL (1.0-2.8); MONOCYTE (%) 3.9 % (3-12); MONOCYTE COUNT 0.9 K/uL (0-0.8); NEUTROPHIL (%) 91.6 % (45-76); NEUTROPHIL COUNT 21.7 K/uL (1.8-6.4)
[2017-06-26 05:03] LABS: GLUCOSE 207 mg/dL (70-99)
[2017-06-26 05:05] LABS: ANION GAP 13 MEQ/L (2-14)
[2017-06-26 05:06] LABS: TOTAL BILIRUBIN 2.1 mg/dL (0.0-1.0)
[2017-06-26 05:07] LABS: ALKALINE PHOSPHATASE 106 IU/L (3-129); GFR ESTIMATE (CALCULATED) 9 mL/min/
[2017-06-26 05:09] LABS: TROP-I INTERPRETATION POSITIVE
[2017-06-26 05:11] LABS: UREA NITROGEN (BUN) 148 mg/dL (9-23)
[2017-06-26 05:12] LABS: TROPONIN-I 2.35 ng/mL (0.0-0.30)
[2017-06-26 06:25] LABS: MAGNESIUM 2.4 mg/dl (1.3-2.7)
[2017-06-26 06:48] LABS: VANCOMYCIN, TROUGH 9.1 MCG/ML (10-20)
[2017-06-26 07:43] VITALS: BP 124/57
[2017-06-26 07:45] LABS: POINT-OF-CARE METER ID UU13113698
[2017-06-26 11:45] VITALS: BP 107/65
[2017-06-26 11:52] LABS: POINT-OF-CARE METER ID UU13113698
[2017-06-26 13:55] LABS: TROP-I INTERPRETATION POSITIVE; TROPONIN-I 2.02 ng/mL (0.0-0.30)
[2017-06-26 14:17] LABS: HPCA INDEX 0.18
[2017-06-26 14:18] LABS: ANTI-HEPATITIS A VIRUS (IGM) Nonreactive; HAV INDEX 0.33
[2017-06-26 14:19] LABS: ANTI-HEPATITIS B CORE (IGM) Nonreactive; HBC IgM INDEX 0.08
[2017-06-26 15:40] VITALS: BP 109/67
[2017-06-26 16:48] LABS: POINT-OF-CARE METER ID UU14314088
[2017-06-26 20:30] VITALS: BP 126/58
[2017-06-26 21:51] LABS: POINT-OF-CARE METER ID UU13113781
[2017-06-26 23:25] VITALS: BP 115/66
[2017-06-27 00:20] VITALS: BP 114/84
[2017-06-27 04:15] VITALS: BP 119/56
[2017-06-27 05:18] LABS: BASOPHIL COUNT 0.1 K/uL (0-0.1); EOSINOPHIL (%) 0.8 % (0-5); EOSINOPHIL COUNT 0.2 K/uL (0-0.3); HEMATOCRIT 43.5 % (36.0-46.0); IMMATURE GRANULOCYTE COUNT 0.3 K/uL; INSTRUMENT ABS NEUTROPHIL CT 23.7 K/uL; LYMPHOCYTE COUNT 0.8 K/uL (1.0-2.8); MCH 22.9 PG (29.0-34.0); MCHC 30.3 G/DL (30.0-36.0); MCV 75.5 FL (83-99); MEAN PLAT.VOLUME 11.5 uM^3 (9.5-12.4); MONOCYTE (%) 3.3 % (3-12); MONOCYTE COUNT 0.9 K/uL (0-0.8); NEUTROPHIL (%) 91.7 % (45-76); NEUTROPHIL COUNT 23.7 K/uL (1.8-6.4); PLATELET COUNT 461 K/uL (156-360); RBC DIS.WIDTH-CV 21.2 % (11.8-14.6); RBC DIS.WIDTH-SD 53.2 % (39-53); RED BLOOD COUNT 5.76 M/uL (3.80-5.20); WHITE BLOOD COUNT 25.9 K/uL (4.1-10.2)
[2017-06-27 05:30] LABS: TROP-I INTERPRETATION POSITIVE
[2017-06-27 05:33] LABS: TROPONIN-I 1.67 ng/mL (0.0-0.30)
[2017-06-27 06:04] LABS: INTER. NORMALIZED RATIO 2.7; PROTHROMBIN TIME 30.3 SEC (10.2-12.9)
[2017-06-27 06:16] LABS: ALKALINE PHOSPHATASE 93 IU/L (3-129); ANION GAP 18 MEQ/L (2-14); CHLORIDE 100 MEQ/L (99-109); GFR ESTIMATE (CALCULATED) 8 mL/min/; GLUCOSE 180 mg/dL (70-99); MAGNESIUM 2.4 mg/dl (1.3-2.7); POTASSIUM 5.5 MEQ/L (3.7-5.4); SAMPLE HEMOLYSIS CHECK 0; SAMPLE ICTERIC CHECK 0; SAMPLE LIPEMIA CHECK 0; SODIUM 135 MEQ/L (136-147); TOTAL BILIRUBIN 2.4 MG/DL (0.0-1.0); VANCOMYCIN, TROUGH 11.1 MCG/ML (10-20)
[2017-06-27 06:21] LABS: UREA NITROGEN (BUN) 140 mg/dL (9-23)
[2017-06-27 07:30] VITALS: BP 112/64
[2017-06-27 07:35] LABS: POINT-OF-CARE METER ID UU13113781
[2017-06-27 11:56] LABS: POINT-OF-CARE METER ID UU13113698
[2017-06-27 12:43] VITALS: BP 108/71
[2017-06-27 17:48] LABS: POINT-OF-CARE METER ID UU14314088
[2017-06-27 17:50] VITALS: BP 116/67
[2017-06-27 19:15] VITALS: BP 105/58
[2017-06-27 20:50] LABS: POINT-OF-CARE METER ID UU14314088
[2017-06-28 00:05] VITALS: BP 96/51
[2017-06-28 04:19] VITALS: BP 108/59
[2017-06-28 05:21] LABS: BASOPHIL COUNT 0.1 K/uL (0-0.1); EOSINOPHIL (%) 1.5 % (0-5); EOSINOPHIL COUNT 0.3 K/uL (0-0.3); HEMATOCRIT 41.9 % (36.0-46.0); IMMATURE GRANULOCYTE (%) 0.7 % (0.0-0.7); IMMATURE GRANULOCYTE COUNT 0.2 K/uL; INSTRUMENT ABS NEUTROPHIL CT 19.1 K/uL; INTER. NORMALIZED RATIO 2.6; LYMPHOCYTE COUNT 0.8 K/uL (1.0-2.8); MCH 23.3 PG (29.0-34.0); MCHC 30.3 G/DL (30.0-36.0); MEAN PLAT.VOLUME 11.2 uM^3 (9.5-12.4); MONOCYTE (%) 3.5 % (3-12); MONOCYTE COUNT 0.7 K/uL (0-0.8); NEUTROPHIL (%) 90.2 % (45-76); NEUTROPHIL COUNT 19.1 K/uL (1.8-6.4); PLATELET COUNT 449 K/uL (156-360); PROTHROMBIN TIME 30.1 SEC (10.2-12.9); RBC DIS.WIDTH-CV 21.9 % (11.8-14.6); RBC DIS.WIDTH-SD 56.1 % (39-53); RED BLOOD COUNT 5.44 M/uL (3.80-5.20); WHITE BLOOD COUNT 21.2 K/uL (4.1-10.2)
[2017-06-28 05:46] LABS: ANION GAP 16 MEQ/L (2-14); CHLORIDE 101 MEQ/L (99-109); GFR ESTIMATE (CALCULATED) 9 mL/min/; GLUCOSE 136 mg/dL (70-99); MAGNESIUM 2.4 mg/dl (1.3-2.7); POTASSIUM 5.3 MEQ/L (3.7-5.4); SAMPLE HEMOLYSIS CHECK 0; SAMPLE ICTERIC CHECK 0; SAMPLE LIPEMIA CHECK 0; SODIUM 136 MEQ/L (136-147); UREA NITROGEN (BUN) 109 mg/dL (9-23)
[2017-06-28 07:05] LABS: POINT-OF-CARE METER ID UU14314088
[2017-06-28 07:06] VITALS: BP 112/87
[2017-06-28 08:22] LABS: BASOPHIL COUNT 0.1 K/uL (0-0.1); EOSINOPHIL (%) 1.6 % (0-5); EOSINOPHIL COUNT 0.3 K/uL (0-0.3); HEMATOCRIT 40.3 % (36.0-46.0); IMMATURE GRANULOCYTE (%) 0.6 % (0.0-0.7); IMMATURE GRANULOCYTE COUNT 0.1 K/uL; INSTRUMENT ABS NEUTROPHIL CT 19.7 K/uL; LYMPHOCYTE COUNT 0.6 K/uL (1.0-2.8); MCH 22.9 PG (29.0-34.0); MCHC 30.3 G/DL (30.0-36.0); MCV 75.6 FL (83-99); MEAN PLAT.VOLUME 11.8 uM^3 (9.5-12.4); MONOCYTE (%) 3.8 % (3-12); MONOCYTE COUNT 0.8 K/uL (0-0.8); NEUTROPHIL COUNT 19.7 K/uL (1.8-6.4); PLATELET COUNT 468 K/uL (156-360); RBC DIS.WIDTH-CV 21.5 % (11.8-14.6); RBC DIS.WIDTH-SD 53.3 % (39-53); RED BLOOD COUNT 5.33 M/uL (3.80-5.20); WHITE BLOOD COUNT 21.7 K/uL (4.1-10.2)
[2017-06-28 11:08] VITALS: BP 134/62
[2017-06-28 11:37] LABS: POINT-OF-CARE METER ID UU14174216
[2017-06-28 15:44] VITALS: BP 110/59
[2017-06-28 16:44] LABS: POINT-OF-CARE METER ID UU14174216
[2017-06-28 19:00] VITALS: BP 104/58
[2017-06-28 20:47] LABS: POINT-OF-CARE METER ID UU14314088
[2017-06-29] VITALS (7 sets, daily range): BP systolic 96–126; BP diastolic 53–70
[2017-06-29 05:37] LABS: INTER. NORMALIZED RATIO 2.4; PROTHROMBIN TIME 27.4 SEC (10.2-12.9)
[2017-06-29 05:41] LABS: BASOPHIL COUNT 0.1 K/uL (0-0.1); EOSINOPHIL (%) 1.5 % (0-5); EOSINOPHIL COUNT 0.3 K/uL (0-0.3); HEMATOCRIT 39.8 % (36.0-46.0); IMMATURE GRANULOCYTE (%) 0.5 % (0.0-0.7); IMMATURE GRANULOCYTE COUNT 0.1 K/uL; INSTRUMENT ABS NEUTROPHIL CT 18.7 K/uL; LYMPHOCYTE COUNT 0.8 K/uL (1.0-2.8); MCH 22.7 PG (29.0-34.0); MCHC 30.4 G/DL (30.0-36.0); MCV 74.7 FL (83-99); MEAN PLAT.VOLUME 11.2 uM^3 (9.5-12.4); MONOCYTE (%) 4.8 % (3-12); NEUTROPHIL (%) 89.2 % (45-76); NEUTROPHIL COUNT 18.7 K/uL (1.8-6.4); PLATELET COUNT 452 K/uL (156-360); RBC DIS.WIDTH-SD 52.8 % (39-53); RED BLOOD COUNT 5.33 M/uL (3.80-5.20)
[2017-06-29 06:00] LABS: ANION GAP 12 MEQ/L (2-14); CHLORIDE 102 MEQ/L (99-109); GFR ESTIMATE (CALCULATED) 11 mL/min/; SAMPLE HEMOLYSIS CHECK 0; SAMPLE ICTERIC CHECK 0; SAMPLE LIPEMIA CHECK 0; SODIUM 138 MEQ/L (136-147); UREA NITROGEN (BUN) 82 mg/dL (9-23)
[2017-06-29 06:03] LABS: GLUCOSE 89 mg/dL (70-99); POTASSIUM 4.2 MEQ/L (3.7-5.4)
[2017-06-29 07:16] LABS: POINT-OF-CARE METER ID UU14314088
[2017-06-29 12:17] LABS: POINT-OF-CARE METER ID UU13113698; POINT-OF-CARE USER ID ENVKC36
[2017-06-29 16:58] LABS: POINT-OF-CARE METER ID UU14174216; POINT-OF-CARE USER ID ENVKC36
[2017-06-29 21:26] LABS: POINT-OF-CARE METER ID UU14174216
[2017-06-30 03:31] VITALS: BP 106/57
[2017-06-30 05:41] LABS: INTER. NORMALIZED RATIO 2.3; PROTHROMBIN TIME 26.1 SEC (10.2-12.9)
[2017-06-30 05:43] LABS: BASOPHIL COUNT 0.1 K/uL (0-0.1); EOSINOPHIL (%) 1.7 % (0-5); EOSINOPHIL COUNT 0.3 K/uL (0-0.3); HEMATOCRIT 40.2 % (36.0-46.0); IMMATURE GRANULOCYTE (%) 0.6 % (0.0-0.7); IMMATURE GRANULOCYTE COUNT 0.1 K/uL; INSTRUMENT ABS NEUTROPHIL CT 18.4 K/uL; LYMPHOCYTE COUNT 0.7 K/uL (1.0-2.8); MCHC 30.3 G/DL (30.0-36.0); MCV 75.7 FL (83-99); MEAN PLAT.VOLUME 11.2 uM^3 (9.5-12.4); MONOCYTE (%) 4.2 % (3-12); MONOCYTE COUNT 0.9 K/uL (0-0.8); NEUTROPHIL (%) 89.9 % (45-76); NEUTROPHIL COUNT 18.4 K/uL (1.8-6.4); PLATELET COUNT 440 K/uL (156-360); RBC DIS.WIDTH-CV 22.1 % (11.8-14.6); RBC DIS.WIDTH-SD 55.8 % (39-53); RED BLOOD COUNT 5.31 M/uL (3.80-5.20); WHITE BLOOD COUNT 20.5 K/uL (4.1-10.2)
[2017-06-30 06:00] LABS: ANION GAP 11 MEQ/L (2-14); CHLORIDE 100 MEQ/L (99-109); GFR ESTIMATE (CALCULATED) 13 mL/min/; GLUCOSE 121 mg/dL (70-99); POTASSIUM 3.9 MEQ/L (3.7-5.4); SAMPLE HEMOLYSIS CHECK 0; SAMPLE ICTERIC CHECK 0; SAMPLE LIPEMIA CHECK 0; SODIUM 137 MEQ/L (136-147); UREA NITROGEN (BUN) 60 mg/dL (9-23)
[2017-06-30 06:47] VITALS: BP 114/58
[2017-06-30 07:12] LABS: POINT-OF-CARE METER ID UU13113781
[2017-06-30 10:58] VITALS: BP 118/58
[2017-06-30 10:58] LABS: POINT-OF-CARE METER ID UU13113781
[2017-06-30 15:13] VITALS: BP 133/81
[2017-06-30 16:20] LABS: POINT-OF-CARE METER ID UU13113781
[2017-06-30 19:32] VITALS: BP 125/62
[2017-06-30 21:27] LABS: POINT-OF-CARE METER ID UU14174216
[2017-06-30 22:18] VITALS: BP 110/51
[2017-07-01 03:31] VITALS: BP 116/52
[2017-07-01 06:01] LABS: BASOPHIL COUNT 0.1 K/uL (0-0.1); EOSINOPHIL (%) 2.3 % (0-5); EOSINOPHIL COUNT 0.5 K/uL (0-0.3); HEMATOCRIT 39.9 % (36.0-46.0); IMMATURE GRANULOCYTE (%) 0.6 % (0.0-0.7); IMMATURE GRANULOCYTE COUNT 0.1 K/uL; INSTRUMENT ABS NEUTROPHIL CT 18.6 K/uL; LYMPHOCYTE COUNT 0.7 K/uL (1.0-2.8); MCH 22.6 PG (29.0-34.0); MCHC 30.1 G/DL (30.0-36.0); MEAN PLAT.VOLUME 11.4 uM^3 (9.5-12.4); MONOCYTE COUNT 0.8 K/uL (0-0.8); NEUTROPHIL (%) 89.2 % (45-76); NEUTROPHIL COUNT 18.6 K/uL (1.8-6.4); PLATELET COUNT 487 K/uL (156-360); RBC DIS.WIDTH-CV 21.4 % (11.8-14.6); RBC DIS.WIDTH-SD 54.1 % (39-53); RED BLOOD COUNT 5.32 M/uL (3.80-5.20); WHITE BLOOD COUNT 20.8 K/uL (4.1-10.2)
[2017-07-01 06:25] LABS: INTER. NORMALIZED RATIO 2.4; PROTHROMBIN TIME 27.2 SEC (10.2-12.9)
[2017-07-01 06:32] LABS: ANION GAP 15 MEQ/L (2-14); CHLORIDE 101 MEQ/L (99-109); GFR ESTIMATE (CALCULATED) 12 mL/min/; GLUCOSE 94 mg/dL (70-99); POTASSIUM 4.1 MEQ/L (3.7-5.4); SAMPLE HEMOLYSIS CHECK 0; SAMPLE ICTERIC CHECK 0; SAMPLE LIPEMIA CHECK 0; SODIUM 138 MEQ/L (136-147); UREA NITROGEN (BUN) 79 mg/dL (9-23)
[2017-07-01 06:48] VITALS: BP 118/56
[2017-07-01 08:08] LABS: POINT-OF-CARE METER ID UU14174216
[2017-07-01 11:24] VITALS: BP 105/53
[2017-07-01 11:24] LABS: POINT-OF-CARE METER ID UU14174216
[2017-07-01 13:37] LABS: ADD MIUA? YES; BILIRUBIN NEGATIVE; BLOOD SMALL; COLOR AMBER ((YELLOW)); GLUCOSE (STRIP) NEGATIVE; KETONES NEGATIVE; LEUKOCYTES SMALL; NITRITE NEGATIVE; PROTEIN (STRIP) 30; SPECIFIC GRAVITY 1.015 (1.000-1.030)
[2017-07-01 13:42] LABS: BACTERIA RARE /HPF; EPITHELIAL CELLS 1+ /HPF; HYALINE CASTS 15-20 /LPF; MUCUS TRACE /LPF; UNCLASSIFIED CRYSTALS 1+ /HPF; WHITE BLOOD CELLS 40-50 /HPF (0-5); WHITE BLOOD CELLS CLUMP FEW /HPF (0-5)
[2017-07-01 16:34] VITALS: BP 125/62
[2017-07-01 16:42] LABS: POINT-OF-CARE METER ID UU14174216
[2017-07-01 18:54] VITALS: BP 116/58
[2017-07-01 20:55] LABS: POINT-OF-CARE METER ID UU14174216
[2017-07-01 22:05] VITALS: BP 112/55
[2017-07-02 03:46] VITALS: BP 114/57
[2017-07-02 06:54] LABS: BASOPHIL COUNT 0.1 K/uL (0-0.1); EOSINOPHIL (%) 2.2 % (0-5); EOSINOPHIL COUNT 0.5 K/uL (0-0.3); HEMATOCRIT 39.9 % (36.0-46.0); IMMATURE GRANULOCYTE (%) 0.8 % (0.0-0.7); IMMATURE GRANULOCYTE COUNT 0.2 K/uL; LYMPHOCYTE COUNT 0.7 K/uL (1.0-2.8); MCH 22.6 PG (29.0-34.0); MCHC 30.3 G/DL (30.0-36.0); MCV 74.4 FL (83-99); MEAN PLAT.VOLUME 11.4 uM^3 (9.5-12.4); MONOCYTE (%) 4.6 % (3-12); NEUTROPHIL (%) 88.9 % (45-76); PLATELET COUNT 468 K/uL (156-360); RBC DIS.WIDTH-CV 21.8 % (11.8-14.6); RBC DIS.WIDTH-SD 54.7 % (39-53); RED BLOOD COUNT 5.36 M/uL (3.80-5.20); WHITE BLOOD COUNT 22.4 K/uL (4.1-10.2)
[2017-07-02 07:01] LABS: INTER. NORMALIZED RATIO 2.2; PROTHROMBIN TIME 25.4 SEC (10.2-12.9)
[2017-07-02 07:08] LABS: ANION GAP 14 MEQ/L (2-14); CHLORIDE 102 MEQ/L (99-109); GFR ESTIMATE (CALCULATED) 11 mL/min/; GLUCOSE 88 mg/dL (70-99); POTASSIUM 4.8 MEQ/L (3.7-5.4); SAMPLE HEMOLYSIS CHECK 0; SAMPLE ICTERIC CHECK 0; SAMPLE LIPEMIA CHECK 0; SODIUM 138 MEQ/L (136-147); UREA NITROGEN (BUN) 84 mg/dL (9-23)
[2017-07-02 07:53] LABS: POINT-OF-CARE METER ID UU14174216
[2017-07-02 09:00] VITALS: BP 95/55
[2017-07-02 11:16] LABS: POINT-OF-CARE METER ID UU14174216
[2017-07-02 12:00] VITALS: BP 101/56
[2017-07-02 16:38] VITALS: BP 110/56
[2017-07-02 16:54] LABS: POINT-OF-CARE METER ID UU14174216
[2017-07-02 19:00] VITALS: BP 100/55
[2017-07-02 21:07] LABS: POINT-OF-CARE METER ID UU13113781
[2017-07-02 23:20] VITALS: BP 111/64
[2017-07-03 03:17] VITALS: BP 112/64
[2017-07-03 05:28] LABS: INTER. NORMALIZED RATIO 2.1; PROTHROMBIN TIME 23.6 SEC (10.2-12.9)
[2017-07-03 05:40] LABS: BASOPHIL COUNT 0.1 K/uL (0-0.1); EOSINOPHIL (%) 2.5 % (0-5); EOSINOPHIL COUNT 0.6 K/uL (0-0.3); HEMATOCRIT 40.2 % (36.0-46.0); IMMATURE GRANULOCYTE (%) 0.5 % (0.0-0.7); IMMATURE GRANULOCYTE COUNT 0.1 K/uL; INSTRUMENT ABS NEUTROPHIL CT 19.3 K/uL; LYMPHOCYTE COUNT 0.8 K/uL (1.0-2.8); MCH 22.3 PG (29.0-34.0); MCHC 29.9 G/DL (30.0-36.0); MCV 74.9 FL (83-99); MEAN PLAT.VOLUME 11.8 uM^3 (9.5-12.4); MONOCYTE (%) 4.6 % (3-12); NEUTROPHIL (%) 88.3 % (45-76); NEUTROPHIL COUNT 19.3 K/uL (1.8-6.4); PLATELET COUNT 479 K/uL (156-360); RBC DIS.WIDTH-CV 21.3 % (11.8-14.6); RBC DIS.WIDTH-SD 54.7 % (39-53); RED BLOOD COUNT 5.37 M/uL (3.80-5.20); WHITE BLOOD COUNT 21.9 K/uL (4.1-10.2)
[2017-07-03 05:48] LABS: ANION GAP 13 MEQ/L (2-14); CHLORIDE 101 MEQ/L (99-109); GFR ESTIMATE (CALCULATED) 11 mL/min/; GLUCOSE 104 mg/dL (70-99); SAMPLE HEMOLYSIS CHECK 0; SAMPLE ICTERIC CHECK 0; SAMPLE LIPEMIA CHECK 0; SODIUM 137 MEQ/L (136-147); UREA NITROGEN (BUN) 95 mg/dL (9-23)
[2017-07-03 08:00] VITALS: BP 146/80
[2017-07-03 15:00] VITALS: BP 126/65
[2017-07-03] MEDS ORDERED: PROAIR RESPICL90 MCG IH (15:06)
[2017-07-03] MEDS ORDERED: CARVEDILOL3.125 MG PO (15:06)
[2017-07-03] MEDS ORDERED: DOCUSATE SODIU100 MG PO (15:07)
[2017-07-03] MEDS ORDERED: ASPIR-LOW81 MG PO (15:07)
[2017-07-03] MEDS ORDERED: BENZONATATE100 MG PO (15:07)
[2017-07-03] MEDS ORDERED: FAMOTIDINE20 MG PO (15:07)
[2017-07-03] MEDS ORDERED: Zeasorb Antifungal T TP (15:12)
[2017-07-03 16:26] LABS: POINT-OF-CARE METER ID UU14174216
== END 2017-07-03 18:40 | disposition home or self-care (01) | DRG 280 ==
LOC: EME 04:54 → EDOF 07:17 → 4EAST 07:17 → ENRESERV 07:29 → EDOF 07:57 → ENRESERV 10:54 → 4EAST 11:31
PROVIDERS: Emergency Medicine; Hospitalist; Internal Medicine; Internal Medicine Cardiovascular Disease; Internal Medicine Nephrology
PROC: 02HV33Z Insertion of Infusion Device into Superior Vena Cava, Percutaneous Approach (ICD-10-PCS; principal; 2017-06-27)
PROC: 5A1D70Z Performance of Urinary Filtration, Intermittent, Less than 6 Hours Per Day (ICD-10-PCS; principal; 2017-06-27)
PROC: 0JH63XZ Insertion of Tunneled Vascular Access Device into Chest Subcutaneous Tissue and Fascia, Percutaneous Approach (ICD-10-PCS; 2017-07-03)
PROC: B518ZZA Fluoroscopy of Superior Vena Cava, Guidance (ICD-10-PCS; 2017-07-03)
PROC: 02PY33Z Removal of Infusion Device from Great Vessel, Percutaneous Approach (ICD-10-PCS; 2017-07-03)
PROC: 02HV33Z Insertion of Infusion Device into Superior Vena Cava, Percutaneous Approach (ICD-10-PCS; 2017-07-03)
DX: I13.2 Hypertensive heart and chronic kidney disease with heart failure and with stage 5 chronic kidney disease, or end stage renal disease (principal); I50.33 Acute on chronic diastolic (congestive) heart failure; J96.21 Acute and chronic respiratory failure with hypoxia; N17.0 Acute kidney failure with tubular necrosis; I48.2 Chronic atrial fibrillation; I25.5 Ischemic cardiomyopathy; I25.10 Atherosclerotic heart disease of native coronary artery without angina pectoris; E87.2 Acidosis; E87.5 Hyperkalemia; I48.1 Persistent atrial fibrillation; I25.2 Old myocardial infarction; K21.9 Gastro-esophageal reflux disease without esophagitis; N18.6 End stage renal disease; E11.22 Type 2 diabetes mellitus with diabetic chronic kidney disease; K75.81 Nonalcoholic steatohepatitis (NASH); I83.228 Varicose veins of left lower extremity with both ulcer of other part of lower extremity and inflammation; L97.829 Non-pressure chronic ulcer of other part of left lower leg with unspecified severity; I83.218 Varicose veins of right lower extremity with both ulcer of other part of lower extremity and inflammation; L97.819 Non-pressure chronic ulcer of other part of right lower leg with unspecified severity; I08.2 Rheumatic disorders of both aortic and tricuspid valves; I21.A1 Myocardial infarction type 2; I27.29 Other secondary pulmonary hypertension; Z87.891 Personal history of nicotine dependence; Z86.73 Personal history of transient ischemic attack (TIA), and cerebral infarction without residual deficits; Z95.1 Presence of aortocoronary bypass graft; E87.1 Hypo-osmolality and hyponatremia; D45 Polycythemia vera; D47.3 Essential (hemorrhagic) thrombocythemia; E11.51 Type 2 diabetes mellitus with diabetic peripheral angiopathy without gangrene; E78.00 Pure hypercholesterolemia, unspecified; E66.9 Obesity, unspecified; Z68.34 Body mass index [BMI] 34.0-34.9, adult; Z79.01 Long term (current) use of anticoagulants; K74.60 Unspecified cirrhosis of liver
CPT/HCPCS: 36415; 36600; 71010; 76770; 80048; 80053; 80069; 80074; 80202; 81003; 82140; 82570; 82803; 82948; 83540; 83605; 83690; 83735; 83880; 84100; 84156; 84300; 84466; 84484; 85025; 85025 91; 85027; 85610; 85730; 87040; 93005; 94640; 94640 76; 94799; 99202; 99281; 99285; C1750; C1752; G0480; J0690; J1644; J1815; J2250; J2405; J2543; J3010; J3370; J7040; J7050; P9047; S0020

== ENCOUNTER 2017-07-31 14:39 | Inpatient (IN) | payer OTHER ==
[~2017-07-31] VITALS: Ht 160 cm; Wt 81.3 kg
[~2017-07-31 14:39] MED LIST changes: +BENZONATATE100 MG PO; +CARVEDILOL3.125 MG PO; +DOCUSATE SODIU100 MG PO; +FAMOTIDINE20 MG PO; +PROAIR RESPICL90 MCG IH; +VASHE WOUND S1000 ML IR; +WARFARIN SODIUM1 MG PO; +WARFARIN SODIUM2 MG PO; +Zeasorb Antifungal T TP; +[UNRECOGNIZED DRUG - OTHER] TP
[2017-07-31 15:13] LABS: INTER. NORMALIZED RATIO 1.8; PROTHROMBIN TIME 20.2 SEC (10.2-12.9)
[2017-07-31 15:14] LABS: CHLORIDE 96 mEq/L (99-109); POTASSIUM 5.3 mEq/L (3.7-5.4); SODIUM 135 mEq/L (136-147)
[2017-07-31 15:16] LABS: GLUCOSE 96 mg/dL (70-99)
[2017-07-31 15:17] LABS: ANION GAP 23 MEQ/L (2-14)
[2017-07-31 15:18] LABS: TOTAL BILIRUBIN 4.9 mg/dL (0.0-1.0)
[2017-07-31 15:19] LABS: ALKALINE PHOSPHATASE 161 IU/L (3-129)
[2017-07-31 15:20] LABS: BASOPHIL COUNT 0.1 K/uL (0-0.1); EOSINOPHIL (%) 0.2 % (0-5); EOSINOPHIL COUNT 0.1 K/uL (0-0.3); GFR ESTIMATE (CALCULATED) 10 mL/min/; HEMATOCRIT 44.6 % (36.0-46.0); IMMATURE GRANULOCYTE (%) 2.7 % (0.0-0.7); IMMATURE GRANULOCYTE COUNT 0.9 K/uL; INSTRUMENT ABS NEUTROPHIL CT 28.9 K/uL; LYMPHOCYTE COUNT 0.7 K/uL (1.0-2.8); MCH 24.7 PG (29.0-34.0); MONOCYTE COUNT 1.3 K/uL (0-0.8); NEUTROPHIL (%) 90.6 % (45-76); NEUTROPHIL COUNT 28.9 K/uL (1.8-6.4); PLATELET COUNT 418 K/uL (156-360); RBC DIS.WIDTH-CV 28.7 % (11.8-14.6); RBC DIS.WIDTH-SD 82.9 % (39-53); RED BLOOD COUNT 5.42 M/uL (3.80-5.20)
[2017-07-31 15:21] LABS: MCV 82.3 FL (83-99); UREA NITROGEN (BUN) 81 mg/dL (9-23)
[2017-07-31 15:22] LABS: WHITE BLOOD COUNT 31.9 K/uL (4.1-10.2)
[2017-07-31 15:26] LABS: TROP-I INTERPRETATION POSITIVE
[2017-07-31 15:27] LABS: TROPONIN-I 13.26 ng/mL (0.0-0.30)
[2017-07-31 15:36] LABS: BICARBONATE 17.7 mEq/L (22-26); CARBOXY HGB 1.6 % (0-5); METHEMOGLOBIN 1.1 % (0-1.5); PCO2 36 mm Hg (35-45); PO2 372 mm Hg (80-100)
[2017-07-31 15:37] LABS: COMMENTS - BLOOD GASES A+C+; DEVICE NRBM; FI02 100 %; O2 FLOW 15 L/MIN; SITE RR; TOTAL RESP RATE 18 resp/min
[2017-07-31 18:10] LABS: TROP-I INTERPRETATION POSITIVE
[2017-07-31 18:19] LABS: TROPONIN-I 14.18 ng/mL (0.0-0.30)
[2017-07-31 19:07] LABS: BASE EXCESS -14.4 mEq/L (-3 to +3); CARBOXY HGB 1.8 % (0-5); COMMENTS - BLOOD GASES C+A+; DEVICE VENT; FI02 100 %; MECHANICAL RATE 14 resp/min; MODE AC; PCO2 41 mm Hg (35-45); PEEP 5 CM/H20; PO2 203 mm Hg (80-100); SITE RR; TIDAL VOLUME 430 ML; TOTAL RESP RATE 14 resp/min; pH 7.14 (7.35-7.45)
[2017-07-31 19:58] LABS: BASE EXCESS -13.8 mEq/L (-3 to +3); BICARBONATE 15.6 mEq/L (22-26); CARBOXY HGB 1.5 % (0-5); METHEMOGLOBIN 0.9 % (0-1.5)
[2017-07-31 19:59] LABS: COMMENTS - BLOOD GASES C+A+; DEVICE VENT; FI02 60 %; MECHANICAL RATE 14 resp/min; MODE AC; PCO2 49 mm Hg (35-45); PEEP 5 CM/H20; PO2 137 mm Hg (80-100); SITE LR; TIDAL VOLUME 430 ML; TOTAL RESP RATE 14 resp/min; pH 7.11 (7.35-7.45)
[2017-07-31 21:18] LABS: BASE EXCESS -15.9 mEq/L (-3 to +3); BICARBONATE 15.5 mEq/L (22-26); METHEMOGLOBIN 1.1 % (0-1.5)
[2017-07-31 21:20] LABS: DEVICE VENT; FI02 100 %; MECHANICAL RATE 24 resp/min; MODE AC; PCO2 60 mm Hg (35-45); PEEP 5 CM/H20; PO2 < 28 mm Hg (80-100); SITE FEMORAL; TIDAL VOLUME 430 ML; TOTAL RESP RATE 24 resp/min; pH 7.02 (7.35-7.45)
[2017-07-31 21:52] LABS: BASE EXCESS -17.9 mEq/L (-3 to +3); BICARBONATE 11.3 mEq/L (22-26); CARBOXY HGB 1.9 % (0-5); COMMENTS - BLOOD GASES C+; DEVICE VENT; FI02 100 %; MECHANICAL RATE 24 resp/min; METHEMOGLOBIN 0.7 % (0-1.5); MODE AC; PCO2 38 mm Hg (35-45); PEEP 5 CM/H20; SITE A-LINE; TIDAL VOLUME 450 ML; TOTAL RESP RATE 27 resp/min; pH 7.08 (7.35-7.45)
[2017-07-31 21:53] LABS: PO2 45 mm Hg (80-100)
[2017-07-31 23:30] VITALS: BP 0/0
[2017-08-01 00:37] VITALS: BP 73/47
== END 2017-07-31 23:37 | DRG 871 ==
LOC: EME 14:39 → ENRESERV 14:51 → CANRESERV 14:51 → EDOF 22:49 → ENRESERV 22:50 → 4WEST 23:25
PROVIDERS: Emergency Medicine
DX: A41.9 Sepsis, unspecified organism (principal); I46.8 Cardiac arrest due to other underlying condition; R09.02 Hypoxemia; E87.2 Acidosis; K74.60 Unspecified cirrhosis of liver; K76.0 Fatty (change of) liver, not elsewhere classified; I48.2 Chronic atrial fibrillation; D45 Polycythemia vera; E11.22 Type 2 diabetes mellitus with diabetic chronic kidney disease; I48.1 Persistent atrial fibrillation; I87.2 Venous insufficiency (chronic) (peripheral); I27.81 Cor pulmonale (chronic); I13.0 Hypertensive heart and chronic kidney disease with heart failure and stage 1 through stage 4 chronic kidney disease, or unspecified chronic kidney disease; N18.9 Chronic kidney disease, unspecified; I50.32 Chronic diastolic (congestive) heart failure; I25.10 Atherosclerotic heart disease of native coronary artery without angina pectoris; R65.21 Severe sepsis with septic shock; I25.2 Old myocardial infarction; Z99.2 Dependence on renal dialysis; Z79.01 Long term (current) use of anticoagulants; Z95.1 Presence of aortocoronary bypass graft; Z95.5 Presence of coronary angioplasty implant and graft; Z85.828 Personal history of other malignant neoplasm of skin; Z86.73 Personal history of transient ischemic attack (TIA), and cerebral infarction without residual deficits; Z87.891 Personal history of nicotine dependence
CPT/HCPCS: 36600; 71010; 74000; 80053; 82803; 83605; 83880; 84484; 85025; 85610; 87040; 87070; 87205; 87493; 87506; 87641; 93005; 94002; C1751; C1769; J0171; J0282; J0461; J1265; J2250; J2543; J3370; J7040